=== PATIENT | male | born 1960 | race Caucasian/White ===

== ENCOUNTER → 2018-05-12 08:39 | Outpatient (CLI) | payer OTHER, SELFPAY ==
[2018-05-12 10:11] LABS: Add Manual Diff / Slide Review NO; Basophils Percent Auto 0.4 % (0-2); Eosinophils Percent Auto 3.5 % (2-4); Hematocrit 46.6 % (41-53); Hemoglobin 15.9 g/dL (13.5-17.5); Lymphocytes Percent Auto 27.5 % (25-40); Mean Corpuscular HGB Conc 34.1 % (30-36); Mean Corpuscular Hemoglobin 32.3 PG (26-34); Mean Corpuscular Volume 94.6 fL (80-100); Monocytes Percent Auto 10.7 % (3-14); Neutrophils Absolute Auto 2100 /uL (1500-7000); Neutrophils Percent Auto 57.9 % (50-75); Platelet Count 210 X10^3/uL (150-400); Red Blood Cell Count 4.93 X10^6/uL (4.5-5.9); Red Cell Distribution Width 13.2 % (11.6-14.8); White Blood Cell Count 3.7 X10^3/uL (4.5-11.0)
[2018-05-12 10:29] LABS: Alanine Aminotransferase 57 IU/L (21-72); Albumin 4.6 g/dL (3.5-5.0); Albumin Globulin Ratio 1.7 (1.0-2.8); Alkaline Phosphatase 80 U/L (38-126); Aspartate Aminotransferase 37 IU/L (17-59); BUN Creatinine Ratio 21.3 (6-22); Bilirubin Total 0.8 mg/dL (0.2-1.3); Blood Urea Nitrogen 17 mg/dL (9-20); Calcium 9.5 mg/dL (8.4-10.2); Carbon Dioxide 23 mmol/L (22-32); Chloride 105 mmol/L (98-107); Cholesterol 124 mg/dL (140-199); Estimated Glomerular Filt Rate > 60.0 mL/min (>60); Globulin 2.7 g/dL (1.7-4.1); Glucose 108 mg/dL (70-100); HDL Cholesterol 47 mg/dL (40-60); HEMOLYSIS < 15 (0-50); LDL Cholesterol Calculated 60 mg/dL (<100); Potassium 4.5 mmol/L (3.4-5.1); Sodium 142 mmol/L (137-145); Total Protein 7.3 g/dL (6.3-8.2); Triglycerides 84 mg/dL (35-150)
[2018-05-12 10:56] LABS: Prostate Specific Antigen 0.209 ng/mL (0.10-4.00)
[2018-05-12 12:28] LABS: Thyroid Stimulating Hormone 4.78 uIU/mL (0.47-4.68)
== END ==
PROVIDERS: PCP Family Medicine; Visit Provider Family Medicine
DX: E78.2 Mixed hyperlipidemia (principal); Z12.5 Encounter for screening for malignant neoplasm of prostate
CPT/HCPCS: 36415; 80053; 80061; 84153; 84443; 85025

== ENCOUNTER → 2018-09-05 13:55 | Outpatient (CLI) | payer OTHER, SELFPAY ==
[2018-09-05 15:13] LABS: Add Manual Diff / Slide Review NO; Basophils Absolute Auto 0 /uL (0-100); Basophils Percent Auto 0.5 % (0-2); Eosinophils Absolute Auto 100 /uL (0-450); Hematocrit 46.1 % (41-53); Hemoglobin 15.6 g/dL (13.5-17.5); Lymphocytes Absolute Auto 1200 /uL (1100-4500); Lymphocytes Percent Auto 24.6 % (25-40); Mean Corpuscular HGB Conc 33.9 % (30-36); Mean Corpuscular Hemoglobin 32.1 PG (26-34); Mean Corpuscular Volume 94.6 fL (80-100); Monocytes Absolute Auto 300 /uL (0-900); Monocytes Percent Auto 5.5 % (3-14); Neutrophils Absolute Auto 3200 /uL (1500-7000); Neutrophils Percent Auto 67.4 % (50-75); Platelet Count 217 X10^3/uL (150-400); Red Blood Cell Count 4.87 X10^6/uL (4.5-5.9); White Blood Cell Count 4.7 X10^3/uL (4.5-11.0)
[2018-09-05 15:54] LABS: Free T3, Triiodothyronine Free 4.05 pg/mL (2.77-5.27); Free T4, Direct Thyroxine 0.77 ng/dL (0.78-2.19)
[2018-09-05 16:08] LABS: Thyroid Stimulating Hormone 7.18 uIU/mL (0.47-4.68)
== END ==
PROVIDERS: Family Provider Family Medicine; PCP Family Medicine; Visit Provider Family Medicine
DX: D72.819 Decreased white blood cell count, unspecified (principal); E03.9 Hypothyroidism, unspecified
CPT/HCPCS: 36415; 84439; 84443; 84481; 85025

== ENCOUNTER → 2018-10-09 13:14 | Outpatient (CLI) | payer OTHER, SELFPAY ==
[2018-10-09 14:42] LABS: Thyroid Stimulating Hormone 3.01 uIU/mL (0.47-4.68)
== END ==
PROVIDERS: PCP Family Medicine; Visit Provider Family Medicine
DX: E03.9 Hypothyroidism, unspecified (principal)
CPT/HCPCS: 36415; 84443

== ENCOUNTER → 2019-03-12 07:42 | Outpatient (CLI) | payer OTHER, SELFPAY ==
[2019-03-12 08:16] LABS: Alanine Aminotransferase 35 IU/L (21-72); Albumin 4.6 g/dL (3.5-5.0); Albumin Globulin Ratio 1.6 (1.0-2.8); Alkaline Phosphatase 80 U/L (38-126); Aspartate Aminotransferase 31 IU/L (17-59); BUN Creatinine Ratio 18.9 (6-22); Bilirubin Total 1.1 mg/dL (0.2-1.3); Blood Urea Nitrogen 17 mg/dL (9-20); Calcium 9.9 mg/dL (8.4-10.2); Carbon Dioxide 27 mmol/L (22-32); Chloride 101 mmol/L (98-107); Cholesterol 185 mg/dL (140-199); Estimated Glomerular Filt Rate > 60.0 mL/min (>60); Globulin 2.8 g/dL (1.7-4.1); Glucose 111 mg/dL (70-100); HDL Cholesterol 50 mg/dL (40-60); HEMOLYSIS < 15 (0-50); LDL Cholesterol Calculated 100 mg/dL (<100); Potassium 4.8 mmol/L (3.4-5.1); Sodium 139 mmol/L (137-145); Total Protein 7.4 g/dL (6.3-8.2); Triglycerides 175 mg/dL (35-150); Uric Acid 6.9 mg/dL (3.5-8.5)
[2019-03-12 08:21] LABS: Add Manual Diff / Slide Review NO; Basophils Absolute Auto 0 /uL (0-100); Basophils Percent Auto 0.4 % (0-2); Eosinophils Absolute Auto 100 /uL (0-450); Eosinophils Percent Auto 2.2 % (2-4); Hematocrit 46.8 % (41-53); Hemoglobin 16.2 g/dL (13.5-17.5); Lymphocytes Absolute Auto 1300 /uL (1100-4500); Lymphocytes Percent Auto 31.4 % (25-40); Mean Corpuscular HGB Conc 34.7 % (30-36); Mean Corpuscular Hemoglobin 32.2 PG (26-34); Mean Corpuscular Volume 92.9 fL (80-100); Monocytes Absolute Auto 400 /uL (0-900); Monocytes Percent Auto 10.2 % (3-14); Neutrophils Absolute Auto 2300 /uL (1500-7000); Neutrophils Percent Auto 55.8 % (50-75); Platelet Count 210 X10^3/uL (150-400); Red Blood Cell Count 5.04 X10^6/uL (4.5-5.9); Red Cell Distribution Width 13.1 % (11.6-14.8); White Blood Cell Count 4.1 X10^3/uL (4.5-11.0)
[2019-03-12 08:45] LABS: Prostate Specific Antigen Scrn 0.198 ng/mL (0.1-4.0)
[2019-03-12 09:23] LABS: Thyroid Stimulating Hormone 4.71 uIU/mL (0.47-4.68)
== END ==
PROVIDERS: PCP Family Medicine; Visit Provider Family Medicine
DX: E07.9 Disorder of thyroid, unspecified (principal); E03.9 Hypothyroidism, unspecified; E78.2 Mixed hyperlipidemia; M10.9 Gout, unspecified; Z12.5 Encounter for screening for malignant neoplasm of prostate; Z13.0 Encounter for screening for diseases of the blood and blood-forming organs and certain disorders involving the immune mechanism; Z13.1 Encounter for screening for diabetes mellitus
CPT/HCPCS: 36415; 80053; 80061; 84443; 84550; 85025; G0103

== ENCOUNTER → 2019-05-10 07:42 | Outpatient (CLI) | payer OTHER, SELFPAY ==
[2019-05-10 09:51] LABS: Thyroid Stimulating Hormone 2.66 uIU/mL (0.47-4.68)
== END ==
PROVIDERS: PCP Family Medicine; Visit Provider Family Medicine
DX: E03.9 Hypothyroidism, unspecified (principal)
CPT/HCPCS: 36415; 84443

== ENCOUNTER → 2020-04-02 09:00 | Outpatient (CLI) | payer OTHER, SELFPAY ==
[2020-04-02 10:02] LABS: Add Manual Diff / Slide Review NO; Basophils Absolute Auto 0 /uL (0-100); Basophils Percent Auto 0.6 % (0-2); Eosinophils Absolute Auto 100 /uL (0-450); Eosinophils Percent Auto 2.5 % (2-4); Hematocrit 47.1 % (41-53); Lymphocytes Absolute Auto 1200 /uL (1100-4500); Lymphocytes Percent Auto 28.4 % (25-40); Mean Corpuscular Hemoglobin 31.7 PG (26-34); Mean Corpuscular Volume 93.1 fL (80-100); Monocytes Absolute Auto 400 /uL (0-900); Monocytes Percent Auto 8.5 % (3-14); Neutrophils Absolute Auto 2500 /uL (1500-7000); Platelet Count 223 X10^3/uL (150-400); Red Blood Cell Count 5.06 X10^6/uL (4.5-5.9); Red Cell Distribution Width 13.2 % (11.6-14.8); White Blood Cell Count 4.2 X10^3/uL (4.5-11.0)
[2020-04-02 10:27] LABS: Alanine Aminotransferase 42 IU/L (<50); Albumin 4.5 g/dL (3.5-5.0); Albumin Globulin Ratio 1.5 (1.0-2.8); Alkaline Phosphatase 91 U/L (38-126); Aspartate Aminotransferase 33 IU/L (17-59); BUN Creatinine Ratio 21.8 (6-22); Bilirubin Total 0.9 mg/dL (0.2-1.3); Blood Urea Nitrogen 19 mg/dL (9-20); Calcium 9.6 mg/dL (8.4-10.2); Carbon Dioxide 28 mmol/L (22-32); Chloride 104 mmol/L (98-107); Cholesterol 169 mg/dL (140-199); Estimated Glomerular Filt Rate > 60.0 mL/min (>60); Glucose 117 mg/dL (70-100); HDL Cholesterol 53 mg/dL (40-60); HEMOLYSIS < 15 (0-50); LDL Cholesterol Calculated 89 mg/dL (<100); Potassium 4.5 mmol/L (3.4-5.1); Sodium 137 mmol/L (137-145); Total Protein 7.5 g/dL (6.3-8.2); Triglycerides 136 mg/dL (35-150); Uric Acid 7.5 mg/dL (3.5-8.5)
[2020-04-02 10:55] LABS: Prostate Specific Antigen Scrn 0.215 ng/mL (0.1-4.0)
[2020-04-02 11:29] LABS: Thyroid Stimulating Hormone 2.78 uIU/mL (0.47-4.68)
== END ==
PROVIDERS: PCP Family Medicine; Referring Provider Family Medicine; Visit Provider Family Medicine
DX: E03.9 Hypothyroidism, unspecified (principal); E78.2 Mixed hyperlipidemia; M10.9 Gout, unspecified; M54.5 Low back pain; Z12.5 Encounter for screening for malignant neoplasm of prostate
CPT/HCPCS: 36415; 80053; 80061; 84443; 84550; 85025; G0103

== ENCOUNTER → 2020-04-16 09:13 | Outpatient (CLI) | payer OTHER, SELFPAY ==
--- NOTE | 2020-04-16 | DI.MRI.S_ITS ---
PROCEDURE: MR LUMBAR SPINE WO CON INDICATIONS: Low back pain TECHNIQUE: Noncontrast sagittal T1 spin echo and T2 fast echo, sagittal STIR, axial T1 and T2 fast spin echo through the lumbar spine. In cases with scoliosis, additional coronal T2 fast spin echo may be performed. COMPARISON: None. FINDINGS: Image quality: Excellent. Alignment and Curvature: There is trace L4-L5 anterolisthesis. There is trace L2-L3 and L3-L4 retrolisthesis.. Bone Marrow: Mild reactive endplate changes noted adjacent to the L1-L2, L2-L3, L3-L4 and L4-L5 discs. No acute vertebral body compression fractures. Spinal Cord: Conus medullaris terminates at the L1 level. Visualized cord demonstrates normal signal and size. Paraspinous Soft Tissues: No paravertebral masses. L1-L2: Loss of disc signal and height. Mild, diffuse disc bulge. Mild bilateral facet hypertrophy. Mild to moderate narrowing of the central canal. Mild bilateral neural foraminal narrowing. No neural compression. L2-L3: Loss of disc signal and mild loss of disc height. Mild, diffuse disc bulge. Fqwe-gs-khxmeqgt bilateral facet hypertrophy. Moderate narrowing of the central canal. Moderate right and jotn-ue-rqayitta left neural foraminal narrowing. No neural compression. L3-L4: Loss of disc signal and height. Mild, diffuse disc bulge. Moderate bilateral facet hypertrophy. Moderate narrowing of the central canal. Moderate bilateral neural foraminal narrowing. No neural compression. L4-L5: Loss of disc signal. Mild, diffuse disc bulge. Severe bilateral facet hypertrophy. Severe narrowing of the central canal with compression of the nerve roots of the cauda equina. Severe bilateral neural foraminal narrowing with compression of the exiting L4 nerve roots. L5-S1: Loss of disc signal. Minimal, diffuse disc bulge. Severe bilateral facet hypertrophy. Mild to moderate narrowing of the central canal. Mild right and moderate left neural foraminal narrowing. No neural compression. IMPRESSION: 1. Multilevel degenerative disc disease. 2. Multilevel facet arthropathy. 3. Severe L4-L5 central canal narrowing with compression of the nerve roots of the cauda equina. 4. Severe bilateral L4-L5 neural foraminal narrowing with compression of the exiting bilateral L4 nerve roots. Dictated by: Kandy Quezada MD, PhD on 04/16/2020 at 11:05 Approved by: Kandy Quezada MD, PhD on 04/16/2020 at 11:20
== END ==
PROVIDERS: PCP Family Medicine; Referring Provider Orthopaedic Surgery; Visit Provider Orthopaedic Surgery
DX: M54.5 Low back pain (principal); M51.36 Other intervertebral disc degeneration, lumbar region; M47.816 Spondylosis without myelopathy or radiculopathy, lumbar region; M47.817 Spondylosis without myelopathy or radiculopathy, lumbosacral region; M48.061 Spinal stenosis, lumbar region without neurogenic claudication
CPT/HCPCS: 72148

== ENCOUNTER → 2021-05-21 14:33 | Outpatient (CLI) | payer OTHER, SELFPAY ==
--- NOTE | 2021-05-21 14:37 | DI.RAD.S_ITS ---
PROCEDURE: XR HIP W PEL IF DONE RT 2V INDICATIONS: chronic low back pain and right hip pain TECHNIQUE: AP pelvis with lateral view(s) of the bilateral hip(s). COMPARISON: None. FINDINGS: Bones: No fractures or dislocations. Pelvic ring appears intact. No suspicious bony lesions. Mild bilateral hip joint periarticular osteophyte formation. Soft tissues: The visualized bowel gas pattern is normal. No suspicious soft tissue calcifications. IMPRESSION: Bilateral hip osteoarthritis. No acute fracture. No osseous lesion. If symptoms and/or clinical suspicion for pathology persist, further assessment with repeat, or advanced imaging (e.g., CT, MRI, or bone scan) may be helpful for further assessment. Dictated by: Candelario De La Rosa M.D. on 05/21/2021 at 14:51 Approved by: Candelario De La Rosa M.D. on 05/21/2021 at 14:52
--- NOTE | 2021-05-21 14:37 | DI.RAD.S_ITS ---
PROCEDURE: XR LUMBAR SPINE 2-3V INDICATIONS: chronic low back pain and right hip pain TECHNIQUE: 3 views of the lumbar spine were acquired. COMPARISON: None. FINDINGS: Bones: 5 ojg-vtf-[id number] vertebrae are present. Trace levo curvature centered at the L3 level. Trace multilevel retrolisthesis. Multilevel disc degeneration, most notably and moderate at the L3-L4 level. Moderate L4-L5 and L5-S1 facet joint arthropathy. No vertebral body compression fractures. No suspicious bony lesions. Soft tissues: Overlying bowel gas pattern is normal. No suspicious soft tissue calcifications. Vascular calcifications indicate atherosclerosis. IMPRESSION: Multilevel spondylosis. Dictated by: Adrien Riley [facility] Interpreted: Keyla Lagos MD on 05/21/2021 at 14:55 Transcribed by: DHRUV on 05/21/2021 at 14:56 Approved by: Keyla Lagos M.D. on 05/21/2021 at 16:46
== END ==
PROVIDERS: PCP Family Medicine; Referring Provider Family Medicine; Visit Provider Family Medicine
DX: M47.817 Spondylosis without myelopathy or radiculopathy, lumbosacral region (principal); M16.0 Bilateral primary osteoarthritis of hip; M47.816 Spondylosis without myelopathy or radiculopathy, lumbar region
CPT/HCPCS: 72100; 73502

== ENCOUNTER → 2021-06-05 08:18 | Outpatient (CLI) | payer OTHER, SELFPAY ==
[2021-06-05 09:35] LABS: Add Manual Diff / Slide Review NO; Basophils Absolute Auto 0 /uL (0-100); Basophils Percent Auto 0.5 % (0-2); Eosinophils Absolute Auto 100 /uL (0-450); Eosinophils Percent Auto 3.6 % (2-4); Hematocrit 45.8 % (41-53); Hemoglobin 15.6 g/dL (13.5-17.5); Lymphocytes Absolute Auto 1300 /uL (1100-4500); Lymphocytes Percent Auto 34.9 % (25-40); Mean Corpuscular HGB Conc 34.1 % (30-36); Mean Corpuscular Hemoglobin 32.1 PG (26-34); Mean Corpuscular Volume 94.2 fL (80-100); Monocytes Absolute Auto 400 /uL (0-900); Neutrophils Absolute Auto 2000 /uL (1500-7000); Platelet Count 229 X10^3/uL (150-400); Red Blood Cell Count 4.86 X10^6/uL (4.5-5.9); Red Cell Distribution Width 13.4 % (11.6-14.8); White Blood Cell Count 3.8 X10^3/uL (4.5-11.0)
[2021-06-05 09:49] LABS: Alanine Aminotransferase 53 IU/L (<50); Albumin 4.5 g/dL (3.5-5.0); Albumin Globulin Ratio 1.7 (1.0-2.8); Alkaline Phosphatase 80 U/L (38-126); Aspartate Aminotransferase 38 IU/L (17-59); BUN Creatinine Ratio 19.5 (6-22); Bilirubin Total 0.8 mg/dL (0.2-1.3); Blood Urea Nitrogen 15 mg/dL (9-20); Calcium 9.9 mg/dL (8.4-10.2); Carbon Dioxide 28 mmol/L (22-32); Chloride 104 mmol/L (98-107); Cholesterol 124 mg/dL (140-199); Estimated Glomerular Filt Rate > 60.0 mL/min (>60); Globulin 2.6 g/dL (1.7-4.1); Glucose 109 mg/dL (80-110); HDL Cholesterol 49 mg/dL (40-60); HEMOLYSIS < 15 (0-50); LDL Cholesterol Calculated 55 mg/dL (<100); Potassium 4.7 mmol/L (3.4-5.1); Sodium 138 mmol/L (137-145); Total Protein 7.1 g/dL (6.3-8.2); Triglycerides 101 mg/dL (35-150); Uric Acid 5.8 mg/dL (3.5-8.5)
[2021-06-05 10:16] LABS: TSH w/ Reflex to FT4 2.39 uIU/mL (0.47-4.68)
== END ==
PROVIDERS: Family Provider Family Medicine; PCP Family Medicine; Referring Provider Family Medicine; Visit Provider Family Medicine
DX: E03.9 Hypothyroidism, unspecified (principal); E78.2 Mixed hyperlipidemia; M10.9 Gout, unspecified
CPT/HCPCS: 36415; 80053; 80061; 84443; 84550; 85025

== ENCOUNTER 2021-06-22 10:30 | Outpatient (RCR) | payer OTHER, SELFPAY ==
--- NOTE | 2021-05-29 15:31 | PT.OIE ---
Current Diagnoses Unilateral primary osteoarthritis, right hip (05/29/21) Spondylosis without myelopathy or radiculopathy, lumbosacral region (05/29/21) Past Medical History (Last Updated 05/21/21 @ 13:55 by Romie Garay MD) Gout (~1995) Head and neck cancer (~2010) History of left knee surgery (~1975) History of right knee surgery (~2013) Lumbar and sacral osteoarthritis Osteoarthritis of right hip Stool incontinence Past Surgical History (Last Updated 06/01/18 @ 20:25 by Silvana Orosco) Anesthesia History of left knee surgery (~1975) History of right knee surgery (~2013) Visit Care Team Role Provider Type Romie Garay MD Attending Provider Physician Family Provider Primary Care Provider Referring Provider Specialty: Family Practice Address: [address] [place] [address], [facility] Email: [email or web address] Physical Therapy Initial Evaluation PT-OP-A Visit Information Start: 05/28/21 10:13 Freq: Status: Active Protocol: Document 05/29/21 10:30 AMB (Rec: 05/29/21 15:06 AMB [id number]) Out-Patient Physical Therapy Visit Information Visit Information Visit Type Initial Evaluation Visit Start Time 10:30 Visit Stop Time 11:15 Total Visit Minutes 45 Visit Number 1 Precautions Precautions central canal stenosis with cauda equina impingement, anterolisthesis and retrolisthesis-- see MRI PT-OP-B Current Condition Start: 05/28/21 10:13 Freq: Status: Active Protocol: Document 05/29/21 10:30 AMB (Rec: 05/29/21 10:50 AMB [id number]) Current Condition History of Current Condition Onset Date 2 years ago, worsening Current Complaints LBP/ Right hip pain/weakness History of Current Condition Humphrey notes back pain/hip pain. 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 Notes pain started with sitting at work, they got a new chair and it was quite uncomfortable. Has to sit in the chair for about 14 hours a day when working. Wasn't able to get off the boat when going to port due to Covid. Takes a lot of ibuprofen. R leg is weaker than it used to be, also notes L leg numbness with walking. Walking for exercise . Bowel changes in last few months: anal leakage with coughing unless really tightens sphincter purposefully, even then can leak. Denies numbness in saddle area. Prior Treatments and Tests MRI dated 04/16/20 1. Multilevel degenerative disc disease. 2. Multilevel facet arthropathy. 3. Severe L4-L5 central canal narrowing with compression of the nerve roots of the cauda equina. 4. Severe bilateral L4-L5 neural foraminal narrowing with compression of the exiting bilateral L4 nerve roots. Future Testing and Treatments Planned Trying to get into neurosurgery appt, had MRI a couple of days ago up in [place], but hasn't received report for that yet. Treatment Goals Patient/Caregiver Goals REduce pain with walking, sleeping, sitting Prior Functional Status Baseline Function- ADL's Independent Baseline Function- Mobility Independent Current Functional Impairments (Reported) Functional Limitations- ADL's Sleeping, walking, sitting Personal Factors Other Personal Factors That May Effect 6'4 300# Therapy/Recovery PT-OP-C Subjective Start: 05/28/21 10:13 Freq: Status: Active Protocol: Document 05/29/21 10:30 AMB (Rec: 05/29/21 15:06 AMB [id number]) Patient Questionnaires Oswestry Low Back Index Oswestry Score 24 Oswestry Impairment 20 to 39% Impaired (Score 20- 39) PT-OP-G Mobility & Gait Start: 05/28/21 10:13 Freq: Status: Active Protocol: Document 05/29/21 10:30 AMB (Rec: 05/29/21 15:14 AMB [id number]) OP Gait Assessment Comments Gait Comments Antalgic gait with reduced trunk rotation and mild Trendelenburg on R, no AD PT-OP-J Posture/Palpation/Skin Start: 05/28/21 10:13 Freq: Status: Active Protocol: Document 05/29/21 10:30 AMB (Rec: 05/29/21 15:14 AMB [id number]) Posture Evaluation Comments Posture Comments Flat spine, pain over L4L5 and then radiates into ischial tub on R, no pain going down further into leg, but numbness goes down the left posterior thigh to the back of the knee when present. PT-OP-K Range of Motion Start: 05/28/21 10:13 Freq: Status: Active Protocol: Document 05/29/21 10:30 AMB (Rec: 05/29/21 15:14 AMB [id number]) Lumbar Spine Range of Motion Lumbar Spine Active Degrees Testing Position Standing Flexion 50 Extension 30 Comments good painfree motion, does not reproduce pain or reduce it either Hip Goniometric Range of Motion Hip Right Passive Testing Position Supine Flexion w/Knee Flexed 110 Internal Rotation 0 External Rotation 20 PT-OP-M Strength Start: 05/28/21 10:13 Freq: Status: Active Protocol: Document 05/29/21 10:30 AMB (Rec: 05/29/21 15:14 AMB [id number]) Hip Strength Hip Manual Muscle Testing Right Flexion (L2) 4- Good- Abduction 3+ Fair+ External Rotation 4- Good- Left Flexion (L2) 4+ Good+ Extension (S1) 4+ Good+ Abduction 4+ Good+ Knee Strength Knee Manual Muscle Testing Right Flexion (S2) 5 Normal Extension (L3) 5 Normal Left Flexion (S2) 5 Normal Extension (L3) 5 Normal Ankle/Foot Strength Ankle and Foot Manual Muscle Testing Right Dorsiflexion (L4) 4- Good- Plantarflexion (S1) 4+ Good+ Left Dorsiflexion (L4) 4+ Good+ Plantarflexion (S1) 4+ Good+ PT-OP-T Assessment and Plan Start: 05/28/21 10:13 Freq: Status: Active Protocol: Document 05/29/21 10:30 AMB (Rec: 05/29/21 15:24 AMB [id number]) Physical Therapy Assessment Rehab Potential Rehabilitation Potential Good Evaluation Complexity Number of Personal Factors/Comorbidities 1-2 Number of Body Systems Impaired 4 or More Clinical Presentation at Evaluation Evolving Impairments Impairments Activity Tolerance,Functional Activities,Gait,Pain,Posture, ROM,Strength Goals Two Impairment Pain Short Term Goal (STG) Humphrey will walk for 1 mile without numbness or pain of greater than 3/10. STG Duration 4 weeks Pulper Goal (LTG) Humphrey will report pain at worst in the past week as 5/10 or less. LTG Duration 8 weeks One Impairment Strength Short Term Goal (STG) Humphrey will be independent with a HEP for core and hip strengthening. STG Duration 4 weeks Longterm Goal (LTG) Humphrey will improve his hip strength to 4/5 in all planes. LTG Duration 6 weeks Assessment Summary Assessment Humphrey attends physical therapy with worsening low back pain that radiates into the hips. He also does have restricted ROM in the right hip. Prior imaging reveals central canal stenosis with compression of the nerve roots of the cauda equina and R hip osteoarthritis. He is going to be evaluated by neurosurgery as he is starting to report fecal incontinence. 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 He does have right leg (hip and ankle dorsiflexion) weakness but has maintained his lumbar ROM well. He will benefit from physical therapy to instruct him in appropriate body mechanics, core stabilization, and work with pain management strategies. Currently his pain at rest is 1/10, but can increase to 8/10 quickly, and he would benefit from a reduction in pain and improved strength while considering further treatment options. Physical Therapy Plan Frequency and Duration Frequency of Treatment 2x/Week Duration of Treatment 6 weeks Plan of Care Start Date 05/29/21 Plan of Care End Date 07/10/21 Therapeutic Interventions Therapeutic Interventions Aquatic Therapy,Gait Training, Home Exercise Program,Manual Therapy,Neuromuscular Re- education,Self-Care/Home Management,Therapeutic Activities,Therapeutic Exercises Modalities Electric Stimulation,Hot Packs Next Visit Focus/Plan Next Note Type Treatment Note Next Visit Plan Started discussion of TA facilitation and body mechanics at [facility], continue and progress pain relief options.
--- NOTE | 2021-05-29 15:32 | PT.OPPOC ---
Physical, Occupational & Speech Therapy At [facility] Current Diagnoses Unilateral primary osteoarthritis, right hip (05/29/21) Spondylosis without myelopathy or radiculopathy, lumbosacral region (05/29/21) Visit Care Team Role Provider Type Romie Garay MD Attending Provider Physician Family Provider Primary Care Provider Referring Provider Specialty: Family Practice Address: [address] [place] [address], [employer] Email: [email or web address] Plan Of Care PT-OP-T Assessment and Plan Start: 05/28/21 10:13 Freq: Status: Active Protocol: Document 05/29/21 10:30 AMB (Rec: 05/29/21 15:24 AMB [id number]) Physical Therapy Assessment Rehab Potential Rehabilitation Potential Good Evaluation Complexity Number of Personal Factors/Comorbidities 1-2 Number of Body Systems Impaired 4 or More Clinical Presentation at Evaluation Evolving Impairments Impairments Activity Tolerance,Functional Activities,Gait,Pain,Posture, ROM,Strength Goals Two Impairment Pain Short Term Goal (STG) Humphrey will walk for 1 mile without numbness or pain of greater than 3/10. STG Duration 4 weeks Optical Glass Inspector Goal (LTG) Humphrey will report pain at worst in the past week as 5/10 or less. LTG Duration 8 weeks One Impairment Strength Short Term Goal (STG) Humphrey will be independent with a HEP for core and hip strengthening. STG Duration 4 weeks Skilled Nursing Goal (LTG) Humphrey will improve his hip strength to 4/5 in all planes. LTG Duration 6 weeks Assessment Summary Assessment Humphrey attends physical therapy with worsening low back pain that radiates into the hips. He also does have restricted ROM in the right hip. Prior imaging reveals central canal stenosis with compression of the nerve roots of the cauda equina and R hip osteoarthritis. He is going to be evaluated by neurosurgery as he is starting to report fecal incontinence. 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 He does have right leg (hip and ankle dorsiflexion) weakness but has maintained his lumbar ROM well. He will benefit from physical therapy to instruct him in appropriate body mechanics, core stabilization, and work with pain management strategies. Currently his pain at rest is 1/10, but can increase to 8/10 quickly, and he would benefit from a reduction in pain and improved strength while considering further treatment options. Physical Therapy Plan Frequency and Duration Frequency of Treatment 2x/Week Duration of Treatment 6 weeks Plan of Care Start Date 05/29/21 Plan of Care End Date 07/10/21 Therapeutic Interventions Therapeutic Interventions Aquatic Therapy,Gait Training, Home Exercise Program,Manual Therapy,Neuromuscular Re- education,Self-Care/Home Management,Therapeutic Activities,Therapeutic Exercises Modalities Electric Stimulation,Hot Packs Next Visit Focus/Plan Next Note Type Treatment Note Next Visit Plan Started discussion of TA facilitation and body mechanics at eval, continue and progress pain relief options. Plan of Care Dates Plan of Care Start Date 05/29/21 Plan of Care End Date 07/10/21 Electronically Signed by: Sandi Haines, PT 05/29/21 [id number] Please Sign and Return: I have reviewed this Plan of Care and certify that the skilled therapy services above are required to meet the patient?s needs. Physician Signature Date Printed Name and Credentials Clinical Instructor Signature Printed Name and Credentials
--- NOTE | 2021-06-01 09:46 | PT.OTN ---
Current Diagnoses Unilateral primary osteoarthritis, right hip (06/01/21) Spondylosis without myelopathy or radiculopathy, lumbosacral region (06/01/21) Physical Therapy Treatment Note PT-OP-A Visit Information Start: 05/28/21 10:13 Freq: Status: Active Protocol: Document 06/01/21 09:06 SP (Rec: 06/01/21 09:49 SP [id number]) Out-Patient Physical Therapy Visit Information Visit Information Visit Type Treatment Note Visit Start Time 09:06 Visit Stop Time 09:46 Total Visit Minutes 40 Visit Number 2 Number of HIM CODER Visits 2 Precautions Precautions central canal stenosis with cauda equina impingement, anterolisthesis and retrolisthesis-- see MRI PT-OP-B Current Condition Start: 05/28/21 10:13 Freq: Status: Active Protocol: Document 05/29/21 10:30 AMB (Rec: 05/29/21 10:50 AMB [id number]) Current Condition History of Current Condition Onset Date 2 years ago, worsening Current Complaints LBP/ Right hip pain/weakness History of Current Condition Humphrey notes back pain/hip pain. 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 Notes pain started with sitting at work, they got a new chair and it was quite uncomfortable. Has to sit in the chair for about 14 hours a day when working. Wasn't able to get off the boat when going to port due to Covid. Takes a lot of ibuprofen. R leg is weaker than it used to be, also notes L leg numbness with walking. Walking for exercise . Bowel changes in last few months: anal leakage with coughing unless really tightens sphincter purposefully, even then can leak. Denies numbness in saddle area. Prior Treatments and Tests MRI dated 04/16/20 1. Multilevel degenerative disc disease. 2. Multilevel facet arthropathy. 3. Severe L4-L5 central canal narrowing with compression of the nerve roots of the cauda equina. 4. Severe bilateral L4-L5 neural foraminal narrowing with compression of the exiting bilateral L4 nerve roots. Future Testing and Treatments Planned Trying to get into neurosurgery appt, had MRI a couple of days ago up in [place], but hasn't received report for that yet. Treatment Goals Patient/Caregiver Goals REduce pain with walking, sleeping, sitting Prior Functional Status Baseline Function- ADL's Independent Baseline Function- Mobility Independent Current Functional Impairments (Reported) Functional Limitations- ADL's Sleeping, walking, sitting Personal Factors Other Personal Factors That May Effect 6'4 300# Therapy/Recovery PT-OP-C Subjective Start: 05/28/21 10:13 Freq: Status: Active Protocol: Document 06/01/21 09:06 SP (Rec: 06/01/21 09:49 SP [id number]) OP-PT Subjective Patient Comments Patient Comments Pt reports leaving Jun 2 back out [place] sea. [place] fine after eval. PT-OP-G Mobility & Gait Start: 05/28/21 10:13 Freq: Status: Active Protocol: Document 05/29/21 10:30 AMB (Rec: 05/29/21 15:14 AMB [id number]) OP Gait Assessment Comments Gait Comments Antalgic gait with reduced trunk rotation and mild Trendelenburg on R, no AD PT-OP-J Posture/Palpation/Skin Start: 05/28/21 10:13 Freq: Status: Active Protocol: Document 05/29/21 10:30 AMB (Rec: 05/29/21 15:14 AMB [id number]) Posture Evaluation Comments Posture Comments Flat spine, pain over L4L5 and then radiates into ischial tub on R, no pain going down further into leg, but numbness goes down the left posterior thigh to the back of the knee when present. PT-OP-K Range of Motion Start: 05/28/21 10:13 Freq: Status: Active Protocol: Document 05/29/21 10:30 AMB (Rec: 05/29/21 15:14 AMB [id number]) Lumbar Spine Range of Motion Lumbar Spine Active Degrees Testing Position Standing Flexion 50 Extension 30 Comments good painfree motion, does not reproduce pain or reduce it either Hip Goniometric Range of Motion Hip Right Passive Testing Position Supine Flexion w/Knee Flexed 110 Internal Rotation 0 External Rotation 20 PT-OP-M Strength Start: 05/28/21 10:13 Freq: Status: Active Protocol: Document 05/29/21 10:30 AMB (Rec: 05/29/21 15:14 AMB [id number]) Hip Strength Hip Manual Muscle Testing Right Flexion (L2) 4- Good- Abduction 3+ Fair+ External Rotation 4- Good- Left Flexion (L2) 4+ Good+ Extension (S1) 4+ Good+ Abduction 4+ Good+ Knee Strength Knee Manual Muscle Testing Right Flexion (S2) 5 Normal Extension (L3) 5 Normal Left Flexion (S2) 5 Normal Extension (L3) 5 Normal Ankle/Foot Strength Ankle and Foot Manual Muscle Testing Right Dorsiflexion (L4) 4- Good- Plantarflexion (S1) 4+ Good+ Left Dorsiflexion (L4) 4+ Good+ Plantarflexion (S1) 4+ Good+ PT-OP-Q Treatments Start: 05/28/21 10:13 Freq: Status: Active Protocol: Document 06/01/21 09:06 SP (Rec: 06/01/21 09:49 SP [id number]) Therapeutic Exercises Supine Exercises Sciatic nerve glide/ HS with AP Supine Exercise Name added to HEP Side bilateral Equipment Used towel around thigh Reps/Minutes 2x5 Comments good feedback, tighter on L TA march Supine Exercise Name alternating BLE- added to HEP Side bilateral Reps/Minutes x8 Comments cued TA, slow elevate/lower 90 /90 LTR Supine Exercise Name added to HEP Side bilateral Reps/Minutes 5 breath x5 each side Comments good feedback stretch, painfree range TA engagement Supine Exercise Name hooklying- added to HEP Reps/Minutes 10 sec hold x5 (HEP 10s) Comments cued engage with allowance breath, little challenge Standing Exercises Self STMs Standing Exercise Name paraspinals, glut/ piriformis: added to HEP Equipment Used racquetball on wall Reps/Minutes 3 min total Comments little more sensitive on L but feels ok to do- 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 STG Duration 4 weeks Fpc Goal (LTG) Humphrey will report pain at worst in the past week as 5/10 or less. LTG Duration 8 weeks One Impairment Strength Short Term Goal (STG) Humphrey will be independent with a HEP for core and hip strengthening. STG Duration 4 weeks Fpc Goal (LTG) Humphrey will improve his hip strength to 4/5 in all planes. LTG Duration 6 weeks Assessment Summary Assessment Pt responded well to HEP initiated HEP core strengthening, flexibililty in supine and self STMs for decrease muscle tightness self application. Extra time spent for core/ TA facilitation and neutral spine with cues for breath, alignment and proper form with improved self corrrections. Pt reported my abdominals are weak and find needing to hold my breath some when doing the leg exercises . Pt improved with Coelho contraction with breath ability. Physical Therapy Plan Frequency and Duration Frequency of Treatment 2x/Week Duration of Treatment 6 weeks Plan of Care Start Date 05/29/21 Plan of Care End Date 07/10/21 Therapeutic Interventions Therapeutic Interventions Aquatic Therapy,Gait Training, Home Exercise Program,Manual Therapy,Neuromuscular Re- education,Self-Care/Home Management,Therapeutic Activities,Therapeutic Exercises Modalities Electric Stimulation,Hot Packs Next Visit Focus/Plan Next Note Type Treatment Note Next Visit Plan Recheck HEP initiated last tx supine. Next tx: check body mechanics sit/ stand/ sleep. POC: Started discussion of TA facilitation and body mechanics at eval, continue and progress pain relief options.
--- NOTE | 2021-06-04 12:28 | PT.OTN ---
Current Diagnoses Unilateral primary osteoarthritis, right hip (06/04/21) Spondylosis without myelopathy or radiculopathy, lumbosacral region (06/04/21) Physical Therapy Treatment Note PT-OP-A Visit Information Start: 05/28/21 10:13 Freq: Status: Active Protocol: Document 06/04/21 10:30 AMB (Rec: 06/04/21 11:01 AMB [id number]) Out-Patient Physical Therapy Visit Information Visit Information Visit Type Treatment Note Visit Start Time 10:30 Visit Stop Time 11:15 Total Visit Minutes 45 Visit Number 2 PT-OP-B Current Condition Start: 05/28/21 10:13 Freq: Status: Active Protocol: Document 05/29/21 10:30 AMB (Rec: 05/29/21 10:50 AMB [id number]) Current Condition History of Current Condition Onset Date 2 years ago, worsening Current Complaints LBP/ Right hip pain/weakness History of Current Condition Humphrey notes back pain/hip pain. 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 Notes pain started with sitting at work, they got a new chair and it was quite uncomfortable. Has to sit in the chair for about 14 hours a day when working. Wasn't able to get off the boat when going to port due to Covid. Takes a lot of ibuprofen. R leg is weaker than it used to be, also notes L leg numbness with walking. Walking for exercise . Bowel changes in last few months: anal leakage with coughing unless really tightens sphincter purposefully, even then can leak. Denies numbness in saddle area. Prior Treatments and Tests MRI dated 04/16/20 1. Multilevel degenerative disc disease. 2. Multilevel facet arthropathy. 3. Severe L4-L5 central canal narrowing with compression of the nerve roots of the cauda equina. 4. Severe bilateral L4-L5 neural foraminal narrowing with compression of the exiting bilateral L4 nerve roots. Future Testing and Treatments Planned Trying to get into neurosurgery appt, had MRI a couple of days ago up in [place], but hasn't received report for that yet. Treatment Goals Patient/Caregiver Goals REduce pain with walking, sleeping, sitting Prior Functional Status Baseline Function- ADL's Independent Baseline Function- Mobility Independent Current Functional Impairments (Reported) Functional Limitations- ADL's Sleeping, walking, sitting Personal Factors Other Personal Factors That May Effect 6'4 300# Therapy/Recovery PT-OP-C Subjective Start: 05/28/21 10:13 Freq: Status: Active Protocol: Document 06/04/21 10:30 AMB (Rec: 06/04/21 11:01 AMB [id number]) OP-PT Subjective Patient Comments Patient Comments Seeing ortho surgeon in [place] next week. Did go on a walk this morning, had a bit of numbness but it didn't last much. PT-OP-G Mobility & Gait Start: 05/28/21 10:13 Freq: Status: Active Protocol: Document 05/29/21 10:30 AMB (Rec: 05/29/21 15:14 AMB [id number]) OP Gait Assessment Comments Gait Comments Antalgic gait with reduced trunk rotation and mild Trendelenburg on R, no AD PT-OP-J Posture/Palpation/Skin Start: 05/28/21 10:13 Freq: Status: Active Protocol: Document 05/29/21 10:30 AMB (Rec: 05/29/21 15:14 AMB [id number]) Posture Evaluation Comments Posture Comments Flat spine, pain over L4L5 and then radiates into ischial tub on R, no pain going down further into leg, but numbness goes down the left posterior thigh to the back of the knee when present. PT-OP-K Range of Motion Start: 05/28/21 10:13 Freq: Status: Active Protocol: Document 05/29/21 10:30 AMB (Rec: 05/29/21 15:14 AMB [id number]) Lumbar Spine Range of Motion Lumbar Spine Active Degrees Testing Position Standing Flexion 50 Extension 30 Comments good painfree motion, does not reproduce pain or reduce it either Hip Goniometric Range of Motion Hip Right Passive Testing Position Supine Flexion w/Knee Flexed 110 Internal Rotation 0 External Rotation 20 PT-OP-M Strength Start: 05/28/21 10:13 Freq: Status: Active Protocol: Document 05/29/21 10:30 AMB (Rec: 05/29/21 15:14 AMB [id number]) Hip Strength Hip Manual Muscle Testing Right Flexion (L2) 4- Good- Abduction 3+ Fair+ External Rotation 4- Good- Left Flexion (L2) 4+ Good+ Extension (S1) 4+ Good+ Abduction 4+ Good+ Knee Strength Knee Manual Muscle Testing Right Flexion (S2) 5 Normal Extension (L3) 5 Normal Left Flexion (S2) 5 Normal Extension (L3) 5 Normal Ankle/Foot Strength Ankle and Foot Manual Muscle Testing Right Dorsiflexion (L4) 4- Good- Plantarflexion (S1) 4+ Good+ Left Dorsiflexion (L4) 4+ Good+ Plantarflexion (S1) 4+ Good+ PT-OP-Q Treatments Start: 05/28/21 10:13 Freq: Status: Active Protocol: Document 06/04/21 10:30 AMB (Rec: 06/04/21 12:28 AMB [id number]) Therapeutic Exercises Supine Exercises modified piriformis stretch Supine Exercise Name knee to opposite shoulder Reps/Minutes 30x2 TA july Supine Exercise Name alternating BLE- added to HEP Side bilateral Reps/Minutes x8 Comments cued TA, slow elevate/lower 90 /90 LTR Supine Exercise Name added to HEP Side bilateral Reps/Minutes 5 breath x5 each side Comments good feedback stretch, painfree range Sidelying Exercises 1 Sidelying Exercise Name hip abd Reps/Minutes 2x10 Comments cues for hip stacked, not rotating Sitting Exercises 1 Sitting Exercise Name sciatic n glide Side bilateral Reps/Minutes 2 Comments felt fatigue in quad on R Standing Exercises 1 Standing Exercise Name heel raises Comments single leg- very challenging on the right Other Exercises bird dog Other Exercise Name started with TA in quad, then LE ext, then UE flex Reps/Minutes 2x10 Comments cues for neutral spine PT-OP-T Assessment and Plan Start: 05/28/21 10:13 Freq: Status: Active Protocol: Document 06/04/21 10:30 AMB (Rec: 06/04/21 12:28 AMB [id number]) Physical Therapy Assessment Goals Two Impairment Pain Short Term Goal (STG) Humphrey will walk for 1 mile without numbness or pain of greater than 3/10. STG Duration 4 weeks Group Home Goal (LTG) Humphrey will report pain at worst in the past week as 5/10 or less. LTG Duration 8 weeks One Impairment Strength Short Term Goal (STG) Humphrey will be independent with a HEP for core and hip strengthening. STG Duration 4 weeks Group Home Goal (LTG) Humphrey will improve his hip strength to 4/5 in all planes. LTG Duration 6 weeks Assessment Summary Assessment Humphrey has weakness in his calf and hip, that he was really unaware of before coming to PT. Was able to perform everything without an increase in pain. Concerned about extended sitting that he needs to do when he goes back on the boat. Physical Therapy Plan Frequency and Duration Frequency of Treatment 2x/Week Duration of Treatment 6 weeks Plan of Care Start Date 05/29/21 Plan of Care End Date 07/10/21 Next Visit Focus/Plan Next Note Type Treatment Note Next Visit Plan Next tx: check body mechanics sit/ stand/ sleep. Review new exercises: bird dog, sciatic n glid, modified piriformis stretch
--- NOTE | 2021-06-08 11:24 | PT.OTN ---
Current Diagnoses Unilateral primary osteoarthritis, right hip (06/08/21) Spondylosis without myelopathy or radiculopathy, lumbosacral region (06/08/21) Physical Therapy Treatment Note PT-OP-A Visit Information Start: 05/28/21 10:13 Freq: Status: Active Protocol: Document 06/08/21 10:32 AMB (Rec: 06/08/21 11:20 AMB [id number]) Out-Patient Physical Therapy Visit Information Visit Information Visit Type Treatment Note Visit Start Time 10:30 Visit Stop Time 11:15 Total Visit Minutes 45 Visit Number 3 PT-OP-B Current Condition Start: 05/28/21 10:13 Freq: Status: Active Protocol: Document 05/29/21 10:30 AMB (Rec: 05/29/21 10:50 AMB [id number]) Current Condition History of Current Condition Onset Date 2 years ago, worsening Current Complaints LBP/ Right hip pain/weakness History of Current Condition Humphrey notes back pain/hip pain. 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 Notes pain started with sitting at work, they got a new chair and it was quite uncomfortable. Has to sit in the chair for about 14 hours a day when working. Wasn't able to get off the boat when going to port due to Covid. Takes a lot of ibuprofen. R leg is weaker than it used to be, also notes L leg numbness with walking. Walking for exercise . Bowel changes in last few months: anal leakage with coughing unless really tightens sphincter purposefully, even then can leak. Denies numbness in saddle area. Prior Treatments and Tests MRI dated 04/16/20 1. Multilevel degenerative disc disease. 2. Multilevel facet arthropathy. 3. Severe L4-L5 central canal narrowing with compression of the nerve roots of the cauda equina. 4. Severe bilateral L4-L5 neural foraminal narrowing with compression of the exiting bilateral L4 nerve roots. Future Testing and Treatments Planned Trying to get into neurosurgery appt, had MRI a couple of days ago up in [place], but hasn't received report for that yet. Treatment Goals Patient/Caregiver Goals REduce pain with walking, sleeping, sitting Prior Functional Status Baseline Function- ADL's Independent Baseline Function- Mobility Independent Current Functional Impairments (Reported) Functional Limitations- ADL's Sleeping, walking, sitting Personal Factors Other Personal Factors That May Effect 6'4 300# Therapy/Recovery PT-OP-C Subjective Start: 05/28/21 10:13 Freq: Status: Active Protocol: Document 06/08/21 10:32 AMB (Rec: 06/08/21 11:20 AMB [id number]) OP-PT Subjective Patient Comments Patient Comments Pt has been doing exercises and making them a little harder, heel raises are hard. PT-OP-G Mobility & Gait Start: 05/28/21 10:13 Freq: Status: Active Protocol: Document 05/29/21 10:30 AMB (Rec: 05/29/21 15:14 AMB [id number]) OP Gait Assessment Comments Gait Comments Antalgic gait with reduced trunk rotation and mild Trendelenburg on R, no AD PT-OP-J Posture/Palpation/Skin Start: 05/28/21 10:13 Freq: Status: Active Protocol: Document 05/29/21 10:30 AMB (Rec: 05/29/21 15:14 AMB [id number]) Posture Evaluation Comments Posture Comments Flat spine, pain over L4L5 and then radiates into ischial tub on R, no pain going down further into leg, but numbness goes down the left posterior thigh to the back of the knee when present. PT-OP-K Range of Motion Start: 05/28/21 10:13 Freq: Status: Active Protocol: Document 05/29/21 10:30 AMB (Rec: 05/29/21 15:14 AMB [id number]) Lumbar Spine Range of Motion Lumbar Spine Active Degrees Testing Position Standing Flexion 50 Extension 30 Comments good painfree motion, does not reproduce pain or reduce it either Hip Goniometric Range of Motion Hip Right Passive Testing Position Supine Flexion w/Knee Flexed 110 Internal Rotation 0 External Rotation 20 PT-OP-M Strength Start: 05/28/21 10:13 Freq: Status: Active Protocol: Document 05/29/21 10:30 AMB (Rec: 05/29/21 15:14 AMB [id number]) Hip Strength Hip Manual Muscle Testing Right Flexion (L2) 4- Good- Abduction 3+ Fair+ External Rotation 4- Good- Left Flexion (L2) 4+ Good+ Extension (S1) 4+ Good+ Abduction 4+ Good+ Knee Strength Knee Manual Muscle Testing Right Flexion (S2) 5 Normal Extension (L3) 5 Normal Left Flexion (S2) 5 Normal Extension (L3) 5 Normal Ankle/Foot Strength Ankle and Foot Manual Muscle Testing Right Dorsiflexion (L4) 4- Good- Plantarflexion (S1) 4+ Good+ Left Dorsiflexion (L4) 4+ Good+ Plantarflexion (S1) 4+ Good+ PT-OP-Q Treatments Start: 05/28/21 10:13 Freq: Status: Active Protocol: Document 06/08/21 10:32 AMB (Rec: 06/08/21 11:20 AMB [id number]) Therapeutic Exercises Supine Exercises mini bridges Reps/Minutes 10 Comments cued TA modified piriformis stretch Supine Exercise Name with towel Reps/Minutes 30x2 Sciatic nerve glide/ HS with AP Supine Exercise Name added to HEP Side bilateral Equipment Used towel around thigh Reps/Minutes 2x5 Comments good feedback, tighter on L TA march Supine Exercise Name alternating BLE- added to HEP Side bilateral Reps/Minutes x8 Comments SLR today- small range Sidelying Exercises 1 Sidelying Exercise Name hip abd Reps/Minutes 2x10 Comments cues for hip stacked, not rotating Sitting Exercises 2 Sitting Exercise Name alternating march, then pelvic circles. Comments 10 min 1 Sitting Exercise Name sciatic n glide Side bilateral Reps/Minutes 2 Comments felt fatigue in quad on R PT-OP-T Assessment and Plan Start: 05/28/21 10:13 Freq: Status: Active Protocol: Document 06/08/21 10:32 AMB (Rec: 06/08/21 11:20 AMB [id number]) Physical Therapy Assessment Assessment Summary Assessment [place] core/hip weakness continues, but was able to progress, worked a lot on form today. Physical Therapy Plan Next Visit Focus/Plan Next Note Type Treatment Note Next Visit Plan Next tx: check body mechanics sit/ stand/ sleep. Review new exercises: bird dog, sciatic n glid, modified piriformis stretch
--- NOTE | 2021-06-12 13:49 | PT.OTN ---
Current Diagnoses Unilateral primary osteoarthritis, right hip (06/12/21) Spondylosis without myelopathy or radiculopathy, lumbosacral region (06/12/21) Physical Therapy Treatment Note PT-OP-A Visit Information Start: 05/28/21 10:13 Freq: Status: Active Protocol: Document 06/12/21 13:09 SP (Rec: 06/12/21 13:51 SP [id number]) Out-Patient Physical Therapy Visit Information Visit Information Visit Type Treatment Note Visit Start Time 13:09 Visit Stop Time 13:49 Total Visit Minutes 40 Visit Number 4 Number of RED LEADER Visits 1 Precautions Precautions central canal stenosis with cauda equina impingement, anterolisthesis and retrolisthesis-- see MRI PT-OP-B Current Condition Start: 05/28/21 10:13 Freq: Status: Active Protocol: Document 05/29/21 10:30 AMB (Rec: 05/29/21 10:50 AMB [id number]) Current Condition History of Current Condition Onset Date 2 years ago, worsening Current Complaints LBP/ Right hip pain/weakness History of Current Condition Humphrey notes back pain/hip pain. 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 Notes pain started with sitting at work, they got a new chair and it was quite uncomfortable. Has to sit in the chair for about 14 hours a day when working. Wasn't able to get off the boat when going to port due to Covid. Takes a lot of ibuprofen. R leg is weaker than it used to be, also notes L leg numbness with walking. Walking for exercise . Bowel changes in last few months: anal leakage with coughing unless really tightens sphincter purposefully, even then can leak. Denies numbness in saddle area. Prior Treatments and Tests MRI dated 04/16/20 1. Multilevel degenerative disc disease. 2. Multilevel facet arthropathy. 3. Severe L4-L5 central canal narrowing with compression of the nerve roots of the cauda equina. 4. Severe bilateral L4-L5 neural foraminal narrowing with compression of the exiting bilateral L4 nerve roots. Future Testing and Treatments Planned Trying to get into neurosurgery appt, had MRI a couple of days ago up in [place], but hasn't received report for that yet. Treatment Goals Patient/Caregiver Goals REduce pain with walking, sleeping, sitting Prior Functional Status Baseline Function- ADL's Independent Baseline Function- Mobility Independent Current Functional Impairments (Reported) Functional Limitations- ADL's Sleeping, walking, sitting Personal Factors Other Personal Factors That May Effect 6'4 300# Therapy/Recovery PT-OP-C Subjective Start: 05/28/21 10:13 Freq: Status: Active Protocol: Document 06/12/21 13:09 SP (Rec: 06/12/21 13:51 SP [id number]) OP-PT Subjective Patient Comments Patient Comments Pt reports compliant with HEP and doing pretty good, improving able to engage core. Thinks feeling doing a little bit better. Saw spinal surgeon and suggesting laminectomy, thinking potenial next fall. PT-OP-G Mobility & Gait Start: 05/28/21 10:13 Freq: Status: Active Protocol: Document 05/29/21 10:30 AMB (Rec: 05/29/21 15:14 AMB [id number]) OP Gait Assessment Comments Gait Comments Antalgic gait with reduced trunk rotation and mild Trendelenburg on R, no AD PT-OP-J Posture/Palpation/Skin Start: 05/28/21 10:13 Freq: Status: Active Protocol: Document 05/29/21 10:30 AMB (Rec: 05/29/21 15:14 AMB [id number]) Posture Evaluation Comments Posture Comments Flat spine, pain over L4L5 and then radiates into ischial tub on R, no pain going down further into leg, but numbness goes down the left posterior thigh to the back of the knee when present. PT-OP-K Range of Motion Start: 05/28/21 10:13 Freq: Status: Active Protocol: Document 05/29/21 10:30 AMB (Rec: 05/29/21 15:14 AMB [id number]) Lumbar Spine Range of Motion Lumbar Spine Active Degrees Testing Position Standing Flexion 50 Extension 30 Comments good painfree motion, does not reproduce pain or reduce it either Hip Goniometric Range of Motion Hip Right Passive Testing Position Supine Flexion w/Knee Flexed 110 Internal Rotation 0 External Rotation 20 PT-OP-M Strength Start: 05/28/21 10:13 Freq: Status: Active Protocol: Document 05/29/21 10:30 AMB (Rec: 05/29/21 15:14 AMB [id number]) Hip Strength Hip Manual Muscle Testing Right Flexion (L2) 4- Good- Abduction 3+ Fair+ External Rotation 4- Good- Left Flexion (L2) 4+ Good+ Extension (S1) 4+ Good+ Abduction 4+ Good+ Knee Strength Knee Manual Muscle Testing Right Flexion (S2) 5 Normal Extension (L3) 5 Normal Left Flexion (S2) 5 Normal Extension (L3) 5 Normal Ankle/Foot Strength Ankle and Foot Manual Muscle Testing Right Dorsiflexion (L4) 4- Good- Plantarflexion (S1) 4+ Good+ Left Dorsiflexion (L4) 4+ Good+ Plantarflexion (S1) 4+ Good+ PT-OP-Q Treatments Start: 05/28/21 10:13 Freq: Status: Active Protocol: Document 06/12/21 13:09 SP (Rec: 06/12/21 13:51 SP [id number]) Therapeutic Exercises Supine Exercises mini bridges Reps/Minutes 10 Comments cued TA little more less wobble TA march Supine Exercise Name SLR lift small range Side bilateral Reps/Minutes x8 Comments occasional cuing for no LB arch, brace TA TA engagement Supine Exercise Name hooklying reviewed HEP Reps/Minutes 10 sec hold x3 review Comments good TA w/ breath Sidelying Exercises 1 Sidelying Exercise Name hip abd Reps/Minutes 2x10 Comments good form and stability self corrections Sitting Exercises piriformis stretch Side bilateral Reps/Minutes 30s x2 Comments stated better stretch seated vs laying down w/ towel 2 Sitting Exercise Name alternating march & LAQ, pelvic circles CW/CCW with purpose. Equipment Used 75 cm Tball Reps/Minutes x10 each Comments cued TA, elevated posture, slow movement each 1 Sitting Exercise Name sciatic n glide Side bilateral Reps/Minutes 2 Comments felt fatigue in quad on R Other Exercises bird dog Other Exercise Name UE/ LE ext Reps/Minutes 2x10 Comments cues for neutral spine, serratus press, level shld/ pelvis- improved Self-Care/Home Management Treatment Education Patient Education Body Mechanics,Pain Management ,Posture Other Education Time spent sleeping with use pillows for support: supine under thighs/ calves, prone under pelvis, sidelying between LEs, folded towel under ribcage and front arms. Great feedback response- ritesh more supported. PT-OP-T Assessment and Plan Start: 05/28/21 10:13 Freq: Status: Active Protocol: Document 06/12/21 13:09 SP (Rec: 06/12/21 13:51 SP [id number]) Physical Therapy Assessment Goals Two Impairment Pain Short Term Goal (STG) Humphrey will walk for 1 mile without numbness or pain of greater than 3/10. STG Duration 4 weeks [employer] Spinner Goal (LTG) Humphrey will report pain at worst in the past week as 5/10 or less. LTG Duration 8 weeks One Impairment Strength Short Term Goal (STG) Humphrey will be independent with a HEP for core and hip strengthening. STG Duration 4 weeks Retirement Goal (LTG) Humphrey will improve his hip strength to 4/5 in all planes. LTG Duration 6 weeks Assessment Summary Assessment Pt responded well to HEP review. Ed for pillow use sleeping found very helpful for alignment and painfree. Occasional cues for TA and spinal alignment during ex. Physical Therapy Plan Frequency and Duration Frequency of Treatment 2x/Week Duration of Treatment 6 weeks Plan of Care Start Date 05/29/21 Plan of Care End Date 07/10/21 Therapeutic Interventions Therapeutic Interventions Aquatic Therapy,Gait Training, Home Exercise Program,Manual Therapy,Neuromuscular Re- education,Self-Care/Home Management,Therapeutic Activities,Therapeutic Exercises Modalities Electric Stimulation,Hot Packs Next Visit Focus/Plan Next Note Type Treatment Note Next Visit Plan Next tx: recheck bird dog, continue supine TA HEP. Progress standing TA strengthening, trunk alignment during gait with TA support.
--- NOTE | 2021-06-16 15:01 | PT.OTN ---
Current Diagnoses Unilateral primary osteoarthritis, right hip (06/16/21) Spondylosis without myelopathy or radiculopathy, lumbosacral region (06/16/21) Physical Therapy Treatment Note PT-OP-A Visit Information Start: 05/28/21 10:13 Freq: Status: Active Protocol: Document 06/16/21 13:45 AMB (Rec: 06/16/21 14:31 AMB [id number]) Out-Patient Physical Therapy Visit Information Visit Information Visit Type Treatment Note Visit Start Time 13:45 Visit Stop Time 14:30 Total Visit Minutes 45 Visit Number 5 PT-OP-B Current Condition Start: 05/28/21 10:13 Freq: Status: Active Protocol: Document 05/29/21 10:30 AMB (Rec: 05/29/21 10:50 AMB [id number]) Current Condition History of Current Condition Onset Date 2 years ago, worsening Current Complaints LBP/ Right hip pain/weakness History of Current Condition Humphrey notes back pain/hip pain. 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 Notes pain started with sitting at work, they got a new chair and it was quite uncomfortable. Has to sit in the chair for about 14 hours a day when working. Wasn't able to get off the boat when going to port due to Covid. Takes a lot of ibuprofen. R leg is weaker than it used to be, also notes L leg numbness with walking. Walking for exercise . Bowel changes in last few months: anal leakage with coughing unless really tightens sphincter purposefully, even then can leak. Denies numbness in saddle area. Prior Treatments and Tests MRI dated 04/16/20 1. Multilevel degenerative disc disease. 2. Multilevel facet arthropathy. 3. Severe L4-L5 central canal narrowing with compression of the nerve roots of the cauda equina. 4. Severe bilateral L4-L5 neural foraminal narrowing with compression of the exiting bilateral L4 nerve roots. Future Testing and Treatments Planned Trying to get into neurosurgery appt, had MRI a couple of days ago up in [place], but hasn't received report for that yet. Treatment Goals Patient/Caregiver Goals REduce pain with walking, sleeping, sitting Prior Functional Status Baseline Function- ADL's Independent Baseline Function- Mobility Independent Current Functional Impairments (Reported) Functional Limitations- ADL's Sleeping, walking, sitting Personal Factors Other Personal Factors That May Effect 6'4 300# Therapy/Recovery PT-OP-C Subjective Start: 05/28/21 10:13 Freq: Status: Active Protocol: Document 06/16/21 13:45 AMB (Rec: 06/16/21 14:31 AMB [id number]) OP-PT Subjective Patient Comments Patient Comments Sitting in the chair for an hour and a half, getting up there was a lot of stiffness and pain. PT-OP-G Mobility & Gait Start: 05/28/21 10:13 Freq: Status: Active Protocol: Document 05/29/21 10:30 AMB (Rec: 05/29/21 15:14 AMB [id number]) OP Gait Assessment Comments Gait Comments Antalgic gait with reduced trunk rotation and mild Trendelenburg on R, no AD PT-OP-J Posture/Palpation/Skin Start: 05/28/21 10:13 Freq: Status: Active Protocol: Document 05/29/21 10:30 AMB (Rec: 05/29/21 15:14 AMB [id number]) Posture Evaluation Comments Posture Comments Flat spine, pain over L4L5 and then radiates into ischial tub on R, no pain going down further into leg, but numbness goes down the left posterior thigh to the back of the knee when present. PT-OP-K Range of Motion Start: 05/28/21 10:13 Freq: Status: Active Protocol: Document 05/29/21 10:30 AMB (Rec: 05/29/21 15:14 AMB [id number]) Lumbar Spine Range of Motion Lumbar Spine Active Degrees Testing Position Standing Flexion 50 Extension 30 Comments good painfree motion, does not reproduce pain or reduce it either Hip Goniometric Range of Motion Hip Right Passive Testing Position Supine Flexion w/Knee Flexed 110 Internal Rotation 0 External Rotation 20 PT-OP-M Strength Start: 05/28/21 10:13 Freq: Status: Active Protocol: Document 05/29/21 10:30 AMB (Rec: 05/29/21 15:14 AMB [id number]) Hip Strength Hip Manual Muscle Testing Right Flexion (L2) 4- Good- Abduction 3+ Fair+ External Rotation 4- Good- Left Flexion (L2) 4+ Good+ Extension (S1) 4+ Good+ Abduction 4+ Good+ Knee Strength Knee Manual Muscle Testing Right Flexion (S2) 5 Normal Extension (L3) 5 Normal Left Flexion (S2) 5 Normal Extension (L3) 5 Normal Ankle/Foot Strength Ankle and Foot Manual Muscle Testing Right Dorsiflexion (L4) 4- Good- Plantarflexion (S1) 4+ Good+ Left Dorsiflexion (L4) 4+ Good+ Plantarflexion (S1) 4+ Good+ PT-OP-Q Treatments Start: 05/28/21 10:13 Freq: Status: Active Protocol: Document 06/16/21 13:45 AMB (Rec: 06/16/21 14:52 AMB [id number]) Therapeutic Exercises Supine Exercises TA march Supine Exercise Name SLR lift small range Side bilateral Reps/Minutes x8 Comments occasional cuing for no LB arch, brace TA Sidelying Exercises clam Side bilateral Resistance #3 t band Reps/Minutes 2x10 1 Sidelying Exercise Name hip abd Reps/Minutes 2x10 Comments good form and stability self corrections Sitting Exercises 2 Sitting Exercise Name alternating march & LAQ, pelvic circles CW/CCW with purpose. Equipment Used 75 cm Tball Reps/Minutes x10 each Comments cued TA, elevated posture, slow movement each Standing Exercises t band shoulder ext Resistance #3 t band Reps/Minutes 2x10 Comments with focus on TA stab/posture 1 Standing Exercise Name heel raises Reps/Minutes 10 Comments single leg- very challenging on the right Other Exercises honey pose Other Exercise Name modified for knee pain/ stiffness Reps/Minutes 30x2 bird dog Other Exercise Name UE/ LE ext Reps/Minutes 2x10 Comments cues for neutral spine, serratus press, level shld/ pelvis- improved PT-OP-T Assessment and Plan Start: 05/28/21 10:13 Freq: Status: Active Protocol: Document 06/16/21 13:45 AMB (Rec: 06/16/21 14:31 AMB [id number]) Physical Therapy Assessment Goals Two Impairment Pain Short Term Goal (STG) Humphrey will walk for 1 mile without numbness or pain of greater than 3/10. STG Duration 4 weeks Longterm Goal (LTG) Humphrey will report pain at worst in the past week as 5/10 or less. LTG Duration 8 weeks One Impairment Strength Short Term Goal (STG) Humphrey will be independent with a HEP for core and hip strengthening. STG Duration 4 weeks Longterm Goal (LTG) Humphrey will improve his hip strength to 4/5 in all planes. LTG Duration 6 weeks Assessment Summary Assessment Humphrey is doing well, continues to have weakness and stiffness. Will continue to educate on strengthening and post op precautions. Continues to have sleeping difficulty although muscle relaxers are helping. Encouraged in body pillow. Physical Therapy Plan Next Visit Focus/Plan Next Note Type Treatment Note Next Visit Plan Next tx: continue to educate in post op precuations: log roll, avoiding Bend Lift Twist . recheck bird dog, continue supine TA HEP. Progress standing TA strengthening, trunk alignment during gait with TA support.
--- NOTE | 2021-06-19 14:30 | PT.OTN ---
Current Diagnoses Unilateral primary osteoarthritis, right hip (06/19/21) Spondylosis without myelopathy or radiculopathy, lumbosacral region (06/19/21) Physical Therapy Treatment Note PT-OP-A Visit Information Start: 05/28/21 10:13 Freq: Status: Active Protocol: Document 06/19/21 13:49 SP (Rec: 06/19/21 14:58 SP [id number]) Out-Patient Physical Therapy Visit Information Visit Information Visit Type Treatment Note Visit Start Time 13:49 Visit Stop Time 14:30 Total Visit Minutes 41 Visit Number 6 Number of RINK RAT Visits 1 Precautions Precautions central canal stenosis with cauda equina impingement, anterolisthesis and retrolisthesis-- see MRI PT-OP-B Current Condition Start: 05/28/21 10:13 Freq: Status: Active Protocol: Document 05/29/21 10:30 AMB (Rec: 05/29/21 10:50 AMB [id number]) Current Condition History of Current Condition Onset Date 2 years ago, worsening Current Complaints LBP/ Right hip pain/weakness History of Current Condition Humphrey notes back pain/hip pain. 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 Notes pain started with sitting at work, they got a new chair and it was quite uncomfortable. Has to sit in the chair for about 14 hours a day when working. Wasn't able to get off the boat when going to port due to Covid. Takes a lot of ibuprofen. R leg is weaker than it used to be, also notes L leg numbness with walking. Walking for exercise . Bowel changes in last few months: anal leakage with coughing unless really tightens sphincter purposefully, even then can leak. Denies numbness in saddle area. Prior Treatments and Tests MRI dated 04/16/20 1. Multilevel degenerative disc disease. 2. Multilevel facet arthropathy. 3. Severe L4-L5 central canal narrowing with compression of the nerve roots of the cauda equina. 4. Severe bilateral L4-L5 neural foraminal narrowing with compression of the exiting bilateral L4 nerve roots. Future Testing and Treatments Planned Trying to get into neurosurgery appt, had MRI a couple of days ago up in [place], but hasn't received report for that yet. Treatment Goals Patient/Caregiver Goals REduce pain with walking, sleeping, sitting Prior Functional Status Baseline Function- ADL's Independent Baseline Function- Mobility Independent Current Functional Impairments (Reported) Functional Limitations- ADL's Sleeping, walking, sitting Personal Factors Other Personal Factors That May Effect 6'4 300# Therapy/Recovery PT-OP-C Subjective Start: 05/28/21 10:13 Freq: Status: Active Protocol: Document 06/19/21 13:49 SP (Rec: 06/19/21 14:58 SP [id number]) OP-PT Subjective Patient Comments Patient Comments Pt reported little sore last few days but doing better today. Feels the exercises are helping. He reports more conscious of using core when walking and less back and leg discomfort. Pt stated modified bridge to SL bridge but hard level pelvis. PT-OP-G Mobility & Gait Start: 05/28/21 10:13 Freq: Status: Active Protocol: Document 05/29/21 10:30 AMB (Rec: 05/29/21 15:14 AMB [id number]) OP Gait Assessment Comments Gait Comments Antalgic gait with reduced trunk rotation and mild Trendelenburg on R, no AD PT-OP-J Posture/Palpation/Skin Start: 05/28/21 10:13 Freq: Status: Active Protocol: Document 05/29/21 10:30 AMB (Rec: 05/29/21 15:14 AMB [id number]) Posture Evaluation Comments Posture Comments Flat spine, pain over L4L5 and then radiates into ischial tub on R, no pain going down further into leg, but numbness goes down the left posterior thigh to the back of the knee when present. PT-OP-K Range of Motion Start: 05/28/21 10:13 Freq: Status: Active Protocol: Document 05/29/21 10:30 AMB (Rec: 05/29/21 15:14 AMB [id number]) Lumbar Spine Range of Motion Lumbar Spine Active Degrees Testing Position Standing Flexion 50 Extension 30 Comments good painfree motion, does not reproduce pain or reduce it either Hip Goniometric Range of Motion Hip Right Passive Testing Position Supine Flexion w/Knee Flexed 110 Internal Rotation 0 External Rotation 20 PT-OP-M Strength Start: 05/28/21 10:13 Freq: Status: Active Protocol: Document 05/29/21 10:30 AMB (Rec: 05/29/21 15:14 AMB [id number]) Hip Strength Hip Manual Muscle Testing Right Flexion (L2) 4- Good- Abduction 3+ Fair+ External Rotation 4- Good- Left Flexion (L2) 4+ Good+ Extension (S1) 4+ Good+ Abduction 4+ Good+ Knee Strength Knee Manual Muscle Testing Right Flexion (S2) 5 Normal Extension (L3) 5 Normal Left Flexion (S2) 5 Normal Extension (L3) 5 Normal Ankle/Foot Strength Ankle and Foot Manual Muscle Testing Right Dorsiflexion (L4) 4- Good- Plantarflexion (S1) 4+ Good+ Left Dorsiflexion (L4) 4+ Good+ Plantarflexion (S1) 4+ Good+ PT-OP-Q Treatments Start: 05/28/21 10:13 Freq: Status: Active Protocol: Document 06/19/21 13:49 SP (Rec: 06/19/21 14:58 SP [id number]) Therapeutic Exercises Supine Exercises mini bridges Supine Exercise Name good bridge> progressed to bridge july Reps/Minutes x5 B Comments cued TA little more, good demo level pelvis TA july Supine Exercise Name SLR lift small range Side bilateral Reps/Minutes x20 each LE Comments improved TA and bracing spinal alignment LTR Supine Exercise Name 1. B for stretch good- HEP review Side bilateral Resistance 2.AROM over ball:BLE over 55cm tball- to easy so stopped Reps/Minutes x3-5 each side Comments good feedback stretch, painfree range TA engagement Supine Exercise Name reviewed HEP Reps/Minutes 10 sec hold x3 prep review Comments good TA w/ breath Sidelying Exercises clam Sidelying Exercise Name reviewed HEP Side bilateral Resistance #3 t band Reps/Minutes 2x10 Comments good form trunk alignment and pacing control Standing Exercises trunk flexion stretch Standing Exercise Name add next tx Equipment Used counter top SLS: step over back luisa Standing Exercise Name single leg luisa- added to HEP Side bilateral Equipment Used luisa Reps/Minutes 10 reps x2 Comments cued trunk postural alignment, TA and hip abd fac, need contact with R LE t band shoulder ext Standing Exercise Name HEP reviewed Resistance #3 t band Reps/Minutes 2x10 Comments with focus on TA stab/posture 1 Standing Exercise Name heel raises: L, R (weaker/ challenging), both Reps/Minutes 10 Comments very weak on R, cued LLE can provide little suport as needed. Other Exercises honey pose Other Exercise Name modified for knee pain/ stiffness Resistance states to hard on knees Reps/Minutes 30x2 Comments DC bird dog Other Exercise Name UE/ LE ext- HEP review Reps/Minutes x10 Comments good form and pacing control Therapeutic Activity Therapeutic Activity log roll Reps/Minutes 2 Comments Pt demonstrated I in log roll mechanics and improved pacing and TA during sidelying<> supine. Gait Training Gait Activity postural/ core alignment Description f/b in mirrror Device Used 0 Level of Assistance S Surface firm Distance/Duration 20 ft x3 laps Treatment Focus increase core/ hip abd facilitation Comments improved self corrections, level pelvis/shlds. PT-OP-T Assessment and Plan Start: 05/28/21 10:13 Freq: Status: Active Protocol: Document 06/19/21 13:49 SP (Rec: 06/19/21 14:58 SP [id number]) Physical Therapy Assessment Goals Two Impairment Pain Short Term Goal (STG) Hmuphrey will walk for 1 mile without numbness or pain of greater than 3/10. STG Duration 4 weeks [employer] Goal (LTG) Humphrey will report pain at worst in the past week as 5/10 or less. LTG Duration 8 weeks One Impairment Strength Short Term Goal (STG) Humphrey will be independent with a HEP for core and hip strengthening. STG Duration 4 weeks Nursing Home Goal (LTG) Humphrey will improve his hip strength to 4/5 in all planes. LTG Duration 6 weeks Assessment Summary Assessment Pt improving in core and hip abductor strengthening. Progressed to bridge mini march and SLS step over/back for increase stability with less on contact rail during R stance. Physical Therapy Plan Frequency and Duration Frequency of Treatment 2x/Week Duration of Treatment 6 weeks Plan of Care Start Date 05/29/21 Plan of Care End Date 07/10/21 Therapeutic Interventions Therapeutic Interventions Aquatic Therapy,Gait Training, Home Exercise Program,Manual Therapy,Neuromuscular Re- education,Self-Care/Home Management,Therapeutic Activities,Therapeutic Exercises Modalities Electric Stimulation,Hot Packs Next Visit Focus/Plan Next Note Type Treatment Note Next Visit Plan Next tx: recheck SLS luisa. Add resisted side stepping at waist and or ankles. POC: Progress standing TA strengthening, trunk alignment during gait with TA support.
--- NOTE | 2021-06-22 16:09 | PT.OTN ---
Current Diagnoses Unilateral primary osteoarthritis, right hip (06/22/21) Spondylosis without myelopathy or radiculopathy, lumbosacral region (06/22/21) Physical Therapy Treatment Note PT-OP-A Visit Information Start: 05/28/21 10:13 Freq: Status: Active Protocol: Document 06/22/21 10:33 AMB (Rec: 06/22/21 11:18 AMB [id number]) Out-Patient Physical Therapy Visit Information Visit Information Visit Type Treatment Note Visit Start Time 10:30 Visit Stop Time 11:15 Total Visit Minutes 45 Visit Number 7 PT-OP-B Current Condition Start: 05/28/21 10:13 Freq: Status: Active Protocol: Document 05/29/21 10:30 AMB (Rec: 05/29/21 10:50 AMB [id number]) Current Condition History of Current Condition Onset Date 2 years ago, worsening Current Complaints LBP/ Right hip pain/weakness History of Current Condition Humphrey notes back pain/hip pain. 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 Notes pain started with sitting at work, they got a new chair and it was quite uncomfortable. Has to sit in the chair for about 14 hours a day when working. Wasn't able to get off the boat when going to port due to Covid. Takes a lot of ibuprofen. R leg is weaker than it used to be, also notes L leg numbness with walking. Walking for exercise . Bowel changes in last few months: anal leakage with coughing unless really tightens sphincter purposefully, even then can leak. Denies numbness in saddle area. Prior Treatments and Tests MRI dated 04/16/20 1. Multilevel degenerative disc disease. 2. Multilevel facet arthropathy. 3. Severe L4-L5 central canal narrowing with compression of the nerve roots of the cauda equina. 4. Severe bilateral L4-L5 neural foraminal narrowing with compression of the exiting bilateral L4 nerve roots. Future Testing and Treatments Planned Trying to get into neurosurgery appt, had MRI a couple of days ago up in [place], but hasn't received report for that yet. Treatment Goals Patient/Caregiver Goals REduce pain with walking, sleeping, sitting Prior Functional Status Baseline Function- ADL's Independent Baseline Function- Mobility Independent Current Functional Impairments (Reported) Functional Limitations- ADL's Sleeping, walking, sitting Personal Factors Other Personal Factors That May Effect 6'4 300# Therapy/Recovery PT-OP-C Subjective Start: 05/28/21 10:13 Freq: Status: Active Protocol: Document 06/22/21 10:30 AMB (Rec: 06/22/21 16:02 AMB [id number]) OP-PT Subjective Patient Comments Patient Comments Humphrey feels like he is ready for d/c PT-OP-G Mobility & Gait Start: 05/28/21 10:13 Freq: Status: Active Protocol: Document 05/29/21 10:30 AMB (Rec: 05/29/21 15:14 AMB [id number]) OP Gait Assessment Comments Gait Comments Antalgic gait with reduced trunk rotation and mild Trendelenburg on R, no AD PT-OP-J Posture/Palpation/Skin Start: 05/28/21 10:13 Freq: Status: Active Protocol: Document 05/29/21 10:30 AMB (Rec: 05/29/21 15:14 AMB [id number]) Posture Evaluation Comments Posture Comments Flat spine, pain over L4L5 and then radiates into ischial tub on R, no pain going down further into leg, but numbness goes down the left posterior thigh to the back of the knee when present. PT-OP-K Range of Motion Start: 05/28/21 10:13 Freq: Status: Active Protocol: Document 05/29/21 10:30 AMB (Rec: 05/29/21 15:14 AMB [id number]) Lumbar Spine Range of Motion Lumbar Spine Active Degrees Testing Position Standing Flexion 50 Extension 30 Comments good painfree motion, does not reproduce pain or reduce it either Hip Goniometric Range of Motion Hip Right Passive Testing Position Supine Flexion w/Knee Flexed 110 Internal Rotation 0 External Rotation 20 PT-OP-M Strength Start: 05/28/21 10:13 Freq: Status: Active Protocol: Document 05/29/21 10:30 AMB (Rec: 05/29/21 15:14 AMB [id number]) Hip Strength Hip Manual Muscle Testing Right Flexion (L2) 4- Good- Abduction 3+ Fair+ External Rotation 4- Good- Left Flexion (L2) 4+ Good+ Extension (S1) 4+ Good+ Abduction 4+ Good+ Knee Strength Knee Manual Muscle Testing Right Flexion (S2) 5 Normal Extension (L3) 5 Normal Left Flexion (S2) 5 Normal Extension (L3) 5 Normal Ankle/Foot Strength Ankle and Foot Manual Muscle Testing Right Dorsiflexion (L4) 4- Good- Plantarflexion (S1) 4+ Good+ Left Dorsiflexion (L4) 4+ Good+ Plantarflexion (S1) 4+ Good+ PT-OP-Q Treatments Start: 05/28/21 10:13 Freq: Status: Active Protocol: Document 06/22/21 10:30 AMB (Rec: 06/22/21 16:02 AMB [id number]) Therapeutic Exercises Supine Exercises table top tap down Reps/Minutes 3x5 Comments cued TA mini bridges Supine Exercise Name good bridge> progressed to bridge july Reps/Minutes x5 B Comments cued TA little more, good demo level pelvis Sciatic nerve glide/ HS with AP Supine Exercise Name added to HEP Side bilateral Equipment Used towel around thigh Reps/Minutes 2x5 Comments good feedback, tighter on L TA july Supine Exercise Name SLR lift small range Side bilateral Reps/Minutes x20 each LE Comments improved TA and bracing spinal alignment Sidelying Exercises 1 Sidelying Exercise Name hip abd Reps/Minutes 2x10 Comments good form and stability self corrections Sitting Exercises piriformis stretch Side bilateral Reps/Minutes 30s x2 Comments stated better stretch seated vs laying down w/ towel Standing Exercises 1 Standing Exercise Name heel raises: L, R (weaker/ challenging), both Reps/Minutes 10 Comments very weak on R, cued LLE can provide little suport as needed. Other Exercises bird dog Other Exercise Name UE/ LE ext- HEP review Reps/Minutes x10 Comments good form and pacing control PT-OP-T Assessment and Plan Start: 05/28/21 10:13 Freq: Status: Active Protocol: Document 06/22/21 10:33 AMB (Rec: 06/22/21 11:18 AMB [id number]) Physical Therapy Assessment Goals Two Impairment Pain Short Term Goal (STG) Humphrey will walk for 1 mile without numbness or pain of greater than 3/10. MET Walking 3.5 miles- last mile pain increases STG Duration MET [facility] Goal (LTG) Humphrey will report pain at worst in the past week as 5/10 or less. LTG Duration MET- in the evening with sitting 5/10 pain One Impairment Strength Short Term Goal (STG) Humphrey will be independent with a HEP for core and hip strengthening. STG Duration MET [employer] Goal (LTG) Humphrey will improve his hip strength to 4/5 in all planes. 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 Would encourage lumbar support. Pt' s strength is improving, and better awareness of gait. Pt is planning laminectomy in February, recommend continuing core, calf, hip strengthening exercises, then possible PT after surgery if recommended. Pt has not noticed any change in pelvic floor weakness. Physical Therapy Plan Discharge Physical Therapy Discharge Reasons Goals Met
== END 2021-06-23 07:45 ==
LOC: PHYS 10:30
PROVIDERS: Family Provider Family Medicine; PCP Family Medicine; Referring Provider Family Medicine; Visit Provider Family Medicine
DX: M16.11 Unilateral primary osteoarthritis, right hip (principal); M47.817 Spondylosis without myelopathy or radiculopathy, lumbosacral region
CPT/HCPCS: 97110; 97116; 97162; 97535

== ENCOUNTER → 2022-03-31 07:07 | Outpatient (CLI) | payer OTHER, SELFPAY ==
[2022-03-31 08:45] LABS: Add Manual Diff / Slide Review NO; Basophils Absolute Auto 0 /uL (0-100); Basophils Percent Auto 0.3 % (0-2); Eosinophils Absolute Auto 100 /uL (0-450); Eosinophils Percent Auto 2.1 % (2-4); Hematocrit 44.7 % (41-53); Hemoglobin 15.4 g/dL (13.5-17.5); Lymphocytes Absolute Auto 1200 /uL (1100-4500); Lymphocytes Percent Auto 34.1 % (25-40); Mean Corpuscular HGB Conc 34.5 % (30-36); Mean Corpuscular Hemoglobin 32.3 PG (26-34); Mean Corpuscular Volume 93.9 fL (80-100); Monocytes Absolute Auto 400 /uL (0-900); Monocytes Percent Auto 11.1 % (3-14); Neutrophils Absolute Auto 1800 /uL (1500-7000); Neutrophils Percent Auto 52.4 % (50-75); Platelet Count 210 X10^3/uL (150-400); Red Blood Cell Count 4.76 X10^6/uL (4.5-5.9); White Blood Cell Count 3.5 X10^3/uL (4.5-11.0)
[2022-03-31 09:26] LABS: Alanine Aminotransferase 41 IU/L (<50); Albumin 4.5 g/dL (3.5-5.0); Albumin Globulin Ratio 1.6 (1.0-2.8); Alkaline Phosphatase 86 U/L (38-126); Aspartate Aminotransferase 29 IU/L (17-59); BUN Creatinine Ratio 18.8 (6-22); Bilirubin Total 0.9 mg/dL (0.2-1.3); Blood Urea Nitrogen 15 mg/dL (9-20); Calcium 9.4 mg/dL (8.4-10.2); Carbon Dioxide 25 mmol/L (22-32); Chloride 103 mmol/L (98-107); Cholesterol 146 mg/dL (140-199); Estimated Glomerular Filt Rate > 60 mL/min (>60); Globulin 2.8 g/dL (1.7-4.1); Glucose 108 mg/dL (80-110); HDL Cholesterol 61 mg/dL (40-60); HEMOLYSIS < 15 (0-50); LDL Cholesterol Calculated 69 mg/dL (<100); Potassium 4.5 mmol/L (3.4-5.1); Sodium 139 mmol/L (137-145); Total Protein 7.3 g/dL (6.3-8.2); Triglycerides 78 mg/dL (35-150); Uric Acid 5.9 mg/dL (3.5-8.5)
[2022-03-31 09:51] LABS: TSH w/ Reflex to FT4 2.38 uIU/mL (0.47-4.68)
[2022-03-31 09:52] LABS: Prostate Specific Antigen Scrn 0.322 ng/mL (0.1-4.0)
== END ==
PROVIDERS: Family Provider Family Medicine; PCP Family Medicine; Referring Provider Family Medicine; Visit Provider Family Medicine
DX: D72.819 Decreased white blood cell count, unspecified (principal); E03.9 Hypothyroidism, unspecified; E78.2 Mixed hyperlipidemia; I10 Essential (primary) hypertension; Z12.5 Encounter for screening for malignant neoplasm of prostate
CPT/HCPCS: 36415; 80053; 80061; 84443; 84550; 85025; G0103

== ENCOUNTER → 2022-05-10 11:12 | Outpatient (CLI) | payer OTHER, SELFPAY ==
[2022-05-10 13:56] LABS: COVID19 -Nasal RAPID Negative (Negative)
== END ==
PROVIDERS: Family Provider Family Medicine; PCP Family Medicine; Visit Provider Surgery
DX: Z01.812 Encounter for preprocedural laboratory examination (principal); Z20.822 Contact with and (suspected) exposure to COVID-19
CPT/HCPCS: 87635; C9803

== ENCOUNTER 2022-08-19 06:44 | Day surgery (SDC) | payer OTHER, SELFPAY ==
--- NOTE | 2022-08-19 | PATH_ITS ---
[facility] Accession Number: [id number] No. of containers..01 Tissue . 01 Material submitted: . colon - CECAL POLYPS X3 . 01 Diagnosis: Cecal Polyps x3, Biopsy: Tubular adenoma x2. Additional colonic mucosal fragments with features of inflammatory polyp. ANITA 08/24/2022 1142 Local . 01 Electronically signed: . Jacinda Schultz MD, Pathologist NPI- [id number] . 01 Gross description: . CECAL POLYPS X3: Received in formalin are multiple fragment(s) of shoemaker, soft tissue measuring 1.4 x 0.7 x 0.1 cm in aggregate submitted entirely in 1 cassette(s) /CPE 08/21/2022 0923 Local . 01 Pathologist provided ICD-10: D12.0, K51.40 . 01 CPT . 407367 Specimen Comment: A courtesy copy of this report has been sent to [phone] Performed at: 01 [facility] [address] [place] [address] [address], [place], [place] [id number] MD Corey Salguero MD Phone: [phone]
[2022-08-19] MEDS: LACTATED RINGERS 1,000 ML 42 ML IV (07:17)
[2022-08-19 07:22] VITALS: BP 132/86; PULSE 67; RESP 16; TEMP 36.9; O2SAT 95; BMI 36.7
--- NOTE | 2022-08-19 07:37 | P.HP_ITS ---
History of Present Illness History of Present Illness Date Patient Seen: 08/19/22 Time Patient Seen: 07:37 Chief complaint: Colonoscopy Narrative: Manjit is a 62-year-old man who is here for colonoscopy. He last had a colonoscopy 8 years ago and he thinks 3 polyps were removed. No family history of colon cancer. [facility], [facility] Medical History (Updated 08/19/22 @ 07:38 by Mayank Rubio MD) Gout (~1995) Head and neck cancer (~2010) Lip lesion Lumbar and sacral osteoarthritis Osteoarthritis of right hip Surgical History (Updated 06/01/18 @ 20:25 by Silvana Orosco) Anesthesia History of left knee surgery (~1975) History of right knee surgery (~2013) Family History (Updated 10/21/15 @ 00:00 by Conversion Provider) Brother Age: 67 Stomach cancer Brother Heart disease Father Age: 86 Lung cancer Stroke Mother Heart disease Social History household members: spouse Smoking Status: Former smoker alcohol intake: current Meds Home Medications and Allergies Home Medications Medication Instructions Recorded Confirmed Type sildenafil 25 mg tablet See Rx Instructions .Route 12/31/21 08/19/22 Rx .COMPLEX #30 tabs allopurinol 300 mg tablet 300 mg PO QDAY #90 tabs 03/24/22 08/19/22 Rx amlodipine 10 mg tablet 10 mg PO DAILY #90 tabs 03/24/22 08/19/22 Rx levothyroxine 75 mcg tablet 75 mcg PO DAILY #90 tabs 03/24/22 08/19/22 Rx simvastatin 20 mg tablet 20 mg PO HS #90 tabs 03/24/22 08/19/22 Rx methocarbamol 750 mg tablet 750 mg PO TID PRN Pain (Scale 05/25/22 08/19/22 History Score 1-3) Allergies Allergy/AdvReac Type Severity Reaction Status Date / Time Penicillins [PENICILLINS] Allergy Mild childhood Verified 08/19/22 07:17 Exam Vital Signs (past 8 hours): - 08/19/22 07:22 Temperature 98.4 F Pulse Rate 67 Respiratory Rate 16 Blood Pressure 132/86 Pulse Oximetry 95 Oxygen Delivery Method Room Air Oxygen Delivery Method Room Air Const General: No acute distress Assessment & Plan Assessment and plan (1) Personal history of colonic polyps: Status: Acute Plan Reviewed the risks and benefits of colonoscopy he would like to proceed.
[2022-08-19 08:12] VITALS: BP 115/76; PULSE 86; RESP 16; TEMP 36.4; O2SAT 95
--- NOTE | 2022-08-19 08:13 | PM.OP.COLON ---
Operative Date/Time/Diagnoses Date of procedure: 08/19/22 Time of procedure: 08:13 Pre-op diagnosis: Colon cancer screening and history of polyps Post-op diagnosis: same Procedure & Clinicians Study performed: Colonoscopy Same procedure as scheduled: Yes Surgeon: Mayank Rubio Procedure Notes Procedure in detail: Surgeon: Mayank Rubio MD Anesthesia: Odin Vazquez CRNA Procedure: The patient was brought to the endoscopy suite, placed in left lateral decubitus position. The patient was connected to monitoring devices. A time-out was performed. Sedation was administered. Once the patient was adequately sedated, a digital rectal exam was performed and was normal. The scope was then inserted and advanced to the cecum where the appendiceal orifice was identified and photographed. The scope was then slowly withdrawn over greater than 6 minutes. The terminal ileum was intubated and no abnormalities were seen. There were 3 polyps seen in the cecum. Two of them were about 4 mm and 1 was about 1 cm. The smaller polyps were removed with a cold snare and the large polyp was removed with a hot snare. There were scattered diverticula in the sigmoid colon. The scope was retroflexed in the rectum. No abnormalities were seen in the rectum. The scope was straightened and removed. The patient was awakened and brought to recovery. Scope withdrawal time: 13 minutes Sedation time: 16 minutes EBL: 5 mL Findings: 3 polyps in the cecum the largest of which was 1 cm and scattered diverticulosis Post-procedure Disposition: PACU
[2022-08-19 08:16] VITALS: BP 126/88; PULSE 86; RESP 16; TEMP 36.8; O2SAT 98
[2022-08-19 08:21] VITALS: BP 141/99; PULSE 84; RESP 16; TEMP 36.8; O2SAT 98
== END 2022-08-19 08:29 | disposition home or self-care (01) ==
PROVIDERS: Family Provider Family Medicine; PCP Family Medicine; Referring Provider Surgery; Visit Provider Surgery
PROC: 0DJD8ZZ Inspection of Lower Intestinal Tract, Via Natural or Artificial Opening Endoscopic (ICD-10-PCS; CPT 45378; principal; 2022-08-19 07:45)
DX: Z12.11 Encounter for screening for malignant neoplasm of colon (principal); Z86.010 Personal history of colon polyps; K57.30 Diverticulosis of large intestine without perforation or abscess without bleeding; D12.0 Benign neoplasm of cecum
CPT/HCPCS: 45385; J2704

== ENCOUNTER → 2022-09-29 09:16 | Outpatient (CLI) | payer OTHER, SELFPAY ==
--- NOTE | 2022-09-29 09:17 | DI.MRI.S_ITS ---
PROCEDURE: MR FEMUR RT WO CON INDICATIONS: Idiopathic aseptic necrosis of unspecified bone TECHNIQUE: Noncontrast coronal and sagittal T1 spin echo and STIR; axial T1 spin echo and T2 fast spin echo with fat saturation through the right femur. COMPARISON: [facility], RG, BILATERAL HIP 2VW, 09/02/2022, 8:40. [facility], CR, XR HIP W PEL IF DONE RT 2V, 05/21/2021, 14:30. FINDINGS: Image quality: Excellent. Bones: Asymmetric moderate right hip joint osteoarthritic changes are seen with joint space narrowing, subchondral sclerosis and marginal osteophyte formation. Subtle geographic area of signal abnormality involving weight-bearing portion of right femoral head is seen concerning for early avascular necrosis. No marrow signal abnormality is noted in mid to distal right femoral shaft. No suspicious bony lesions. No cortical erosion or periosteal reaction is seen. Soft tissues: The scanned muscles demonstrate normal overall bulk and internal signal. Subcutaneous tissues appear normal as well. No soft tissue masses are present. Small right knee joint effusion is seen. No gross loose bodies. IMPRESSION: 1. Asymmetric moderate right hip joint osteoarthritis. Suggestion of avascular necrosis involving weight-bearing portion of right femoral head better evaluated on MRI of the right hip from the same day. 2. No marrow signal is seen in mid to distal right femoral shaft. No fracture or dislocation. 3. No gross right thigh muscle or tendon signal abnormalities. Right knee joint effusion, no gross loose bodies. Dictated by: Shan Torres M.D. on 09/29/2022 at 12:56 Approved by: Shan Torres M.D. on 09/29/2022 at 13:26
--- NOTE | 2022-09-29 12:18 | DI.MRI.S_ITS ---
PROCEDURE: MR HIP RT WO CON INDICATIONS: Idiopathic aseptic necrosis of unspecified bone TECHNIQUE: Noncontrast coronal T1 spin echo and STIR through the bony pelvis. Coronal and axial T2 fast spin echo with fat saturation, sagittal T1 spin echo, and oblique axial T2 fast spin echo with fat saturation through the hip. COMPARISON: None. FINDINGS: Image quality: Excellent. Bones and joints: Asymmetric moderate right hip joint osteoarthritic changes are noted with significant joint space narrowing, subchondral sclerosis and edema and subcortical cystic changes. No acute fracture or dislocation. Geographic area of heterogeneously increased T2 hyperintense signal involving superior anterior weight-bearing portion of right femoral head concerning for early avascular necrosis. The visualized lower lumbar spine appears normally aligned. Tendons and ligaments: Distal right gluteus medius and minimus tendinosis and low-grade partial-thickness tear at their insertion on greater trochanter is seen.. The nearby proximal iliotibial band also appears intact. The iliopsoas tendon appears intact, without adjacent bursal fluid collections or evidence for impingement syndrome. The origin of the hamstring tendon is intact at the ischial tuberosity, as well as the associated sacrotuberous ligament. The straight and reflected heads of the rectus femoris muscle origin appear intact, as well as the conjoint tendon. The ligamentum teres appears intact where visualized. Labrum and cartilage: Extensive signal abnormality throughout right hip labrum is noted suggestive of extensive right hip labral tear. Thinning of articulating cartilages in femoral head is seen. The alpha angle of the femur is within normal limits at less than 55 degrees. Soft tissues: Visualized muscles demonstrate normal bulk and internal signal. Quadratus femoris muscle demonstrates no internal edema to suggest ischiofemoral impingement. The proximal sciatic neurovascular bundle appears normal adjacent to the hamstring tendons. No free pelvic fluid. Bladder wall thickness is normal. Genitourinary structures and bowel loops appear normal where visualized. IMPRESSION: 1. Asymmetric moderate right hip joint osteoarthritis. No fracture or dislocation. 2. Suggestion of avascular necrosis involving superior anterior right femoral head weight-bearing portion. 3. Suggestion of extensive right hip labral tear. 4. Tendinosis and low-grade partial-thickness tear involving distal right gluteus medius and minimus at their distal insertion. No other muscle or tendon signal abnormality is seen. Dictated by: Shan Torres M.D. on 09/29/2022 at 13:26 Approved by: Shan Torres M.D. on 09/29/2022 at 13:31
== END ==
PROVIDERS: Family Provider Family Medicine; PCP Family Medicine; Referring Provider Physical Medicine & Rehabilitation Pain Medicine; Visit Provider Physical Medicine & Rehabilitation Pain Medicine
DX: M16.11 Unilateral primary osteoarthritis, right hip (principal); M87.00 Idiopathic aseptic necrosis of unspecified bone; S76.011A Strain of muscle, fascia and tendon of right hip, initial encounter
CPT/HCPCS: 73718; 73721

== ENCOUNTER → 2022-10-04 09:53 | Outpatient (CLI) | payer OTHER, SELFPAY ==
[2022-10-04 10:14] LABS: Add Manual Diff / Slide Review NO; Basophils Absolute Auto 0 /uL (0-100); Basophils Percent Auto 0.5 % (0-2); Eosinophils Absolute Auto 100 /uL (0-450); Eosinophils Percent Auto 2.6 % (2-4); Hematocrit 42.5 % (41-53); Hemoglobin 14.8 g/dL (13.5-17.5); Lymphocytes Absolute Auto 1300 /uL (1100-4500); Lymphocytes Percent Auto 31.8 % (25-40); Mean Corpuscular HGB Conc 34.8 % (30-36); Mean Corpuscular Hemoglobin 32.5 PG (26-34); Mean Corpuscular Volume 93.4 fL (80-100); Monocytes Absolute Auto 400 /uL (0-900); Monocytes Percent Auto 9.3 % (3-14); Neutrophils Absolute Auto 2200 /uL (1500-7000); Neutrophils Percent Auto 55.8 % (50-75); Platelet Count 220 X10^3/uL (150-400); Red Blood Cell Count 4.55 X10^6/uL (4.5-5.9); Red Cell Distribution Width 13.1 % (11.6-14.8)
== END ==
PROVIDERS: Family Provider Family Medicine; PCP Family Medicine; Referring Provider Family Medicine; Visit Provider Family Medicine
DX: D72.819 Decreased white blood cell count, unspecified (principal); E03.9 Hypothyroidism, unspecified; E78.2 Mixed hyperlipidemia; I10 Essential (primary) hypertension
CPT/HCPCS: 36415; 85025

== ENCOUNTER → 2023-02-24 10:18 | Outpatient (CLI) | payer OTHER, SELFPAY ==
--- NOTE | 2023-02-24 10:19 | DI.RAD.S_ITS ---
PROCEDURE: XR KNEE RT 3V INDICATIONS: Right knee strain TECHNIQUE: 3 views of the knee were acquired. COMPARISON: None. FINDINGS: Bones: No fractures or dislocations. No suspicious bony lesions. Moderate tricompartmental knee joint degeneration most pronounced in the patellofemoral joint and lateral femorotibial joint. Chondrocalcinosis.. Soft tissues: Moderate joint effusion. No suspicious soft tissue calcifications. IMPRESSION: 1. Moderate osteoarthritic changes. 2. Chondrocalcinosis. Common etiologies include hyperparathyroidism and CPPD. 3. Moderate knee joint effusion. Dictated by: Keyla Lagos M.D. on 02/24/2023 at 12:34 Approved by: Keyla Lagos M.D. on 02/24/2023 at 12:36
== END ==
PROVIDERS: Family Provider Family Medicine; PCP Family Medicine; Referring Provider Nurse Practitioner Family; Visit Provider Nurse Practitioner Family
DX: S86.911A Strain of unspecified muscle(s) and tendon(s) at lower leg level, right leg, initial encounter (principal); M25.461 Effusion, right knee; M11.261 Other chondrocalcinosis, right knee
CPT/HCPCS: 73562

== ENCOUNTER → 2023-04-05 08:10 | Outpatient (CLI) | payer OTHER, SELFPAY ==
[2023-04-05 10:17] LABS: Add Manual Diff / Slide Review NO; Basophils Absolute Auto 0 /uL (0-100); Basophils Percent Auto 0.3 % (0-2); Eosinophils Absolute Auto 100 /uL (0-450); Eosinophils Percent Auto 1.9 % (2-4); Hematocrit 43.8 % (41-53); Hemoglobin 15.2 g/dL (13.5-17.5); Lymphocytes Absolute Auto 1100 /uL (1100-4500); Mean Corpuscular HGB Conc 34.7 % (30-36); Mean Corpuscular Volume 95.2 fL (80-100); Monocytes Absolute Auto 700 /uL (0-900); Monocytes Percent Auto 15.4 % (3-14); Neutrophils Absolute Auto 2900 /uL (1500-7000); Neutrophils Percent Auto 59.4 % (50-75); Platelet Count 208 X10^3/uL (150-400); Red Cell Distribution Width 13.1 % (11.6-14.8); White Blood Cell Count 4.8 X10^3/uL (4.5-11.0)
[2023-04-05 10:42] LABS: Alanine Aminotransferase 33 IU/L (<50); Albumin 4.7 g/dL (3.5-5.0); Albumin Globulin Ratio 1.8 (1.0-2.8); Alkaline Phosphatase 77 U/L (38-126); Aspartate Aminotransferase 29 IU/L (17-59); BUN Creatinine Ratio 16.3 (6-22); Bilirubin Total 0.9 mg/dL (0.2-1.3); Blood Urea Nitrogen 13 mg/dL (9-20); Calcium 10.1 mg/dL (8.4-10.2); Carbon Dioxide 25 mmol/L (22-32); Chloride 101 mmol/L (98-107); Cholesterol 150 mg/dL (140-199); Estimated Glomerular Filt Rate > 60 mL/min (>60); Globulin 2.6 g/dL (1.7-4.1); Glucose 110 mg/dL (80-110); HDL Cholesterol 63 mg/dL (40-60); HEMOLYSIS < 15 (0-50); LDL Cholesterol Calculated 68 mg/dL (<100); Potassium 4.6 mmol/L (3.4-5.1); Sodium 136 mmol/L (137-145); Total Protein 7.3 g/dL (6.3-8.2); Triglycerides 93 mg/dL (35-150)
[2023-04-05 11:10] LABS: Prostate Specific Antigen Scrn 0.253 ng/mL (0.1-4.0)
[2023-04-05 11:25] LABS: Creatinine Urine Random 59.5 mg/dL
[2023-04-05 11:26] LABS: TSH w/ Reflex to FT4 3.01 uIU/mL (0.47-4.68)
[2023-04-05 11:27] LABS: Hep C Virus Ab w/Reflex Quant NEGATIVE s/c (NEGATIVE)
[2023-04-05 11:28] LABS: Microalbumin Urine Random < 0.6 mg/dL (0-1.6)
== END ==
PROVIDERS: Family Provider Family Medicine; PCP Family Medicine; Referring Provider Family Medicine; Visit Provider Family Medicine
DX: E78.2 Mixed hyperlipidemia (principal); E03.9 Hypothyroidism, unspecified; M10.9 Gout, unspecified; Z12.5 Encounter for screening for malignant neoplasm of prostate
CPT/HCPCS: 36415; 80053; 80061; 82043; 82570; 84443; 85025; 86803; G0103

== ENCOUNTER → 2023-06-14 07:36 | Outpatient (CLI) | payer OTHER, SELFPAY ==
[2023-06-14 07:51] LABS: Urine Volume 10mL (spun)
[2023-06-14 08:11] LABS: Add Manual Diff / Slide Review NO; Basophils Absolute Auto 0 /uL (0-100); Basophils Percent Auto 0.5 % (0-2); Eosinophils Absolute Auto 100 /uL (0-450); Eosinophils Percent Auto 2.1 % (2-4); Hematocrit 43.1 % (41-53); Hemoglobin 14.8 g/dL (13.5-17.5); Lymphocytes Absolute Auto 1000 /uL (1100-4500); Lymphocytes Percent Auto 27.4 % (25-40); Mean Corpuscular HGB Conc 34.4 % (30-36); Mean Corpuscular Volume 95.9 fL (80-100); Monocytes Absolute Auto 300 /uL (0-900); Monocytes Percent Auto 7.3 % (3-14); Neutrophils Absolute Auto 2200 /uL (1500-7000); Neutrophils Percent Auto 62.7 % (50-75); Platelet Count 204 X10^3/uL (150-400); Red Cell Distribution Width 13.3 % (11.6-14.8); White Blood Cell Count 3.6 X10^3/uL (4.5-11.0)
[2023-06-14 08:49] LABS: BUN Creatinine Ratio 21.4 (6-22); Blood Urea Nitrogen 15 mg/dL (9-20); Calcium 9.7 mg/dL (8.4-10.2); Carbon Dioxide 24 mmol/L (22-32); Chloride 103 mmol/L (98-107); Estimated Glomerular Filt Rate > 60 mL/min (>60); Glucose 135 mg/dL (80-110); HEMOLYSIS < 15 (0-50); Potassium 4.4 mmol/L (3.4-5.1); Sodium 138 mmol/L (137-145)
[2023-06-14 10:32] LABS: Appearance Urine UA CLEAR; Bilirubin Urine UA NEGATIVE (NEGATIVE); Color Urine UA YELLOW; Glucose Urine UA NEGATIVE (Negative); Ketones Urine UA NEGATIVE (NEGATIVE); Leukocyte Esterase Urine UA NEGATIVE (NEGATIVE); Nitrite Urine UA NEGATIVE (Negative); Occult Blood Urine UA NEGATIVE (Negative); Protein Urine UA NEGATIVE (Negative); Specific Gravity Urine UA 1.025 (1.000-1.035); Urobilinogen Urine UA 0.2 E.U./dL (0.2); pH Urine UA 5.5 (4.5-8.0)
[2023-06-14 10:45] LABS: Bacteria Urine None Seen; Culture Indicated Urine Cult Not Indicated; RBC Urine None Seen (0-5/HPF); Squamous Epithelial Cell Urine None Seen (0-5/HPF); WBC Urine None Seen (0-5/HPF)
[2023-06-14 12:36] LABS: Hemoglobin A1C% w Est Avg Glu 5.5 % (4.0-6.0)
== END ==
LOC: LAB 07:38
PROVIDERS: Family Provider Family Medicine; PCP Family Medicine; Referring Provider Orthopaedic Surgery; Visit Provider Orthopaedic Surgery
DX: Z01.818 Encounter for other preprocedural examination (principal); R73.9 Hyperglycemia, unspecified; M25.551 Pain in right hip; Z01.812 Encounter for preprocedural laboratory examination; N39.0 Urinary tract infection, site not specified
CPT/HCPCS: 36415; 80048; 81001; 83036; 85025; 93005

== ENCOUNTER 2023-08-16 08:40 | Day surgery (SDC) | payer OTHER, SELFPAY ==
[2023-08-10 08:48] VITALS: BMI 36.5
[2023-08-16] VITALS (10 sets, daily range): BP systolic 127–152; BP diastolic 74–99; PULSE 72–104; RESP 12–20; TEMP 35.4–36.8; O2SAT 92–99; BMI 36.5
--- NOTE | 2023-08-16 06:00 | DI.RAD.S_ITS ---
PROCEDURE: XR PELVIS 1-2V INDICATIONS: INNER OP TECHNIQUE: Intra-operative view of the pelvis and hip acquired. COMPARISON: [facility], CR, XR HIP W PEL IF DONE RT 2V, 05/21/2021, 14:30. FINDINGS: Bones: Intraoperative devices prior to placement of arthroplasty prostheses are in expected positions. No fractures or suspicious bony lesions. Soft tissues: Overlying surgical retractors are present, along with other intraoperative changes. IMPRESSION: Intraoperative right hip arthroplasty. Dictated by: Umu Longoria M.D. on 08/16/2023 at 16:58 Approved by: Umu Longoria M.D. on 08/16/2023 at 16:58
[2023-08-16] MEDS: LACTATED RINGERS 1,000 ML 42 ML IV ×2 (09:30→13:32)
[2023-08-16] MEDS: VANCOMYCIN 1,000 MG/200 ML PIGGYBACK 200 MG IV (10:30)
--- NOTE | 2023-08-16 11:44 | PM.PREOP ---
Pre-operative Note Interval Note History & Physical reviewed/Exam performed by Physician: Yes Changes to H&P: No
--- NOTE | 2023-08-16 11:45 | PM.OP.1 ---
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 Non-operative management has failed and the patient has requested total hip replacement. The risks, benefits and alternatives to surgery were discussed with the patient prior to proceeding. Risks discussed included, but were not limited to, failure to relieve pain, leg length discrepancy, dislocation, stiffness, infection, nerve damage, deep venous thrombosis, pulmonary embolism, stroke, coma, heart attack, permanent paralysis and , as well as the potential need for eventual revision of the prosthetic. Surgeon: Tavia Cottrell Post Acute Care Nurse Practitioner: James Ojeda Anesthesia Type: General and Spinal Operative Notes Findings: Severe right hip OA some component of AVN Closure Type: primary Specimen(s): none sent Prosthetic devices, grafts, tissues, transplants, or devices: Cottrell and nephew R3 size 60, neutral poly liner,one 6.5 mm screw, polar stem standard offset size 8 with collar, 40 mm Oxinium head +0 neck Estimated Blood Loss (mL): 250 Blood products transfused: none Procedure in detail: The patient was seen in the pre-operative area, where the patient identified the right hip as the operative site and this was marked with my initials. The patient received pre-operative antibiotics and was taken to the operating room and placed on the operative table in the left lateral decubitus position after satisfactory anesthesia. A cable tool operator out was performed. The right leg was prepared from the ankle to the iliac crest with ChloroPrep in the usual fashion and draped through sterile drapes. A PA was used during the procedure and was essential for intraoperative retraction and safe implantation of the components. The hip was approached through an approximately 20 cm incision centered over the greater trochanter and curving gently posteriorly as it went proximally. This was carried sharply to the fascia bria, which was divided and retracted with a self retaining retractor. The trochanteric bursa was excised with care being taken to avoid the sciatic nerve, which was identified and protected throughout the case. The short external rotators were incised and the capsulomuscular flap was raised and tagged for later repair. The hip was dislocated, and a femoral neck osteotomy performed approximately 15 mm above the lesser trochanter. Retractors were placed around the femur. The canal was opened with a box cutting osteotome, followed by a T handled reamer and a lateralizing reamer. The chili pepper broach was then used, followed by sequential broaching until there was good stability of the broach in the femur. Retractors were placed to expose the acetabulum. The labrum and central soft tissues were removed. Reaming was performed initially going up in 2 mm increments, then 1 mm increments until good bite was obtained with an odd sized reamer. The cup 1 mm larger than the last reamer was then inserted using the appropriate anteversion guides. It was further stabilized with a screw. A trial neutral liner was placed. The broach was placed in the canal. A trial head and neck were then placed and the hip relocated and checked for leg length and stability. An intraoperative film confirmed the component position and no evidence of fracture. The patient was stable in the position of sleep, of squatting, and could be put through a range of motion with 45 degrees internal rotation without dislocation. At 90 degrees flexion, internal rotation to 70? was possible before dislocation. This was felt to be satisfactory and the appropriate components were opened, and the trials were removed. The acetabular liner was impacted into position. The final stem was then impacted into the prepared femoral canal. A brief Betadine soak was performed while trialing with head options. The hip was meticulously irrigated with normal saline. Finally the femoral head was impacted onto the stem. The acetabulum was cleared of all material and the hip relocated one final time. The capsulomuscular flap was then repaired to the greater trochanter though an awl hole using the tag sutures. The short external rotators were repaired with a nonabsorbable suture. A deep drain was placed and brought out anteriorly. The fascia bria was closed with Vicryl. The subcutaneous layer was closed with barbed sutures and SteriStrips. An Aquacel Ag dressing was applied and the patient was taken to recovery having tolerated the procedure well. Complications: none Post-operative Condition: stable Disposition: Acute Care Plan for aftercare: The patient will be maintained on a standard total hip replacement protocol with weight bearing as tolerated and posterior hip precautions. The patient will receive Aspirin and sequential compression devices for DVT prophylaxis. The patient will be discharged home when safe for the home environment.
[2023-08-16] MEDS: CEFAZOLIN 2 GM/100 ML PREMIX 100 ML IV (12:25)
[2023-08-16] MEDS: CEFAZOLIN VIAL 1 GM in SODIUM CHLORIDE 0.9% 100 ML IV (12:25)
[2023-08-16] MEDS: TRANEXAMIC ACID 1,000 MG VIAL 1000 MG INJ ×2 (12:40→14:36)
--- NOTE | 2023-08-16 13:01 | SUR.OPER ---
Lateral on padded OR bed. Gel axillary roll. Arms secured on padded armboard with pillow supporting top arm. Padded hip positioner braces x4 - anterior and posterior chest and pelvis. Additional gel pad used anterior pelvis. Gel pad under bottom leg from knee to foot and secured with tape over sheet.
[2023-08-16] MEDS: BUPIVACAINE 0.5% (PF) 30 ML, EPINEPHrine 0.15 MG INJ (13:22)
[2023-08-16] MEDS: BUPIVACAINE LIPOSOME 266 MG/20 ML VIAL INJ (13:23)
[2023-08-16] MEDS: ACETAMINOPHEN IV 1,000 MG/100 ML VIAL 400 MG IV (13:35)
--- NOTE | 2023-08-16 15:00 | DI.RAD.S_ITS ---
PROCEDURE: XR HIP W PEL IF DONE RT 2V INDICATIONS: RIGHT TOTAL HIP TECHNIQUE: AP pelvis and lateral view of the hip acquired. COMPARISON: [facility], CR, XR HIP W PEL IF DONE RT 2V, 05/21/2021, 14:30. [facility], CR, XR PELVIS WITH LATERAL HIP RIGHT, 08/12/2023, 10:07. [facility], CR, XR PELVIS 1-2V, 08/16/2023, 13:44. FINDINGS: Bones: Patient is status post right hip arthroplasty, with hardware components in expected positions. The hip joint appears congruent. The visualized bony structures appear intact. Left hip arthritic change. Soft tissues: Overlying postoperative changes are noted. No suspicious soft tissue densities. IMPRESSION: Expected post-operative appearance of a hip arthroplasty. Dictated by: Umu Longoria M.D. on 08/16/2023 at 16:58 Approved by: Umu Longoria M.D. on 08/16/2023 at 16:59
[2023-08-16] MEDS: LACTATED RINGERS 1,000 ML 100 ML IV (17:11)
[2023-08-16] MEDS: ACETAMINOPHEN 325 MG TABLET 650 MG PO (17:12)
[2023-08-16] MEDS: IBUPROFEN 600 MG TABLET PO (18:40)
[2023-08-16] MEDS: OXYCODONE IR 5 MG TABLET PO (20:57)
[2023-08-16] MEDS: methocarbamoL 500 MG TABLET 750 MG PO (20:58)
[2023-08-16] MEDS: GABAPENTIN 300 MG CAPSULE PO (20:58)
[2023-08-16] MEDS: ASPIRIN EC 81 MG TABLET PO (20:58)
[2023-08-16] MEDS: ATORVASTATIN 20 MG TABLET 10 MG PO (20:58)
[2023-08-16] MEDS: DOCUSATE 100 MG CAPSULE PO (20:58)
[2023-08-16] MEDS: CEFAZOLIN VIAL 3 GM in SODIUM CHLORIDE 0.9% 100 ML IV (20:59)
[2023-08-17 00:15] VITALS: BP 116/82; PULSE 103; RESP 18; TEMP 36.6; O2SAT 93
[2023-08-17] MEDS: IBUPROFEN 600 MG TABLET PO (00:44)
[2023-08-17] MEDS: OXYCODONE IR 5 MG TABLET PO ×2 (00:44→11:41)
[2023-08-17 05:31] LABS: Hematocrit 42.3 % (41-53); Hemoglobin 14.4 g/dL (13.5-17.5)
[2023-08-17] MEDS: CEFAZOLIN VIAL 3 GM in SODIUM CHLORIDE 0.9% 100 ML IV (05:44)
[2023-08-17 05:47] VITALS: BP 133/86; PULSE 97; RESP 18; TEMP 36.6; O2SAT 92
--- NOTE | 2023-08-17 07:31 | PM.PNPO.1 ---
Subjective Subjective Date Patient Seen: 08/17/23 Time Patient Seen: 07:15 Interval history: Patient states he has decrease sensation along his right foot. He did not have numbness in this foot prior to surgery. Hip pain is controlled with oral medications. He has not been up and ambulating yet since he was admitted. Exam Vital Signs (past 8 hours): - 08/17/23 00:15 08/17/23 05:47 Temperature 97.8 F 97.8 F Pulse Rate 103 H 97 H Respiratory Rate 18 18 Blood Pressure 116/82 133/86 Pulse Oximetry 93 92 Oxygen Flow Rate 0 0 Oxygen Delivery Method Room Air Oxygen Flow Rate 0 Narrative Exam Narrative: Patient found lying comfortably in bed. Dressing is intact with no signs of drainage. Right leg: Able to flex and extend at the knee. Ankle dorsal flexion strength 1/5. Plantar flexion strength 3/5. EHL flexion 3/5, EHL extension 1/5. Hyposensation along the L5 dermatome from the ankle to the toes. Left Leg: Sensation through out the L1 to L5 dermatomes are intact. Able to flex and extend at the knee. DP, PF, EHL 5/5 strength Objective Labs 08/17/23 05:00 Labs: Laboratory Results - last 24 hr 08/17/23 05:00 Hgb 14.4 Hct 42.3 PFSH Medical History (Updated 08/10/23 @ 09:18 by Yolanda Perkins RN) History of COVID-19 (~02/2023) HTN (hypertension) Osteoarthritis of right hip Lumbar and sacral osteoarthritis Lip lesion Gout (~1995) Head and neck cancer (~2010) Surgical History (Updated 08/10/23 @ 09:11 by Yolanda Perkins RN) History of surgery (2010) H/O vasectomy Hx of laminectomy (03/2022) Anesthesia History of right knee surgery (~2013) History of left knee surgery (~1975) Family History (Updated 10/21/15 @ 00:00 by Conversion Provider) Brother Age: 68 Stomach cancer Brother Heart disease Father Age: 87 Lung cancer Stroke Mother Heart disease Social History household members: spouse Smoking Status: Former smoker alcohol intake: never Assessment & Plan Post-op Postoperative Procedures: Procedures Operation Date: 08/16/23 10:45 Actual Procedure Side Surgeon p Total Hip Arthroplasty Right Tavia Cottrell MD Postoperative day: 1 Postoperative plan narrative: Notified Dr. Cottrell of findings. She recommend monitoring patient and have him work with PT throughout the day. Reevaluate tomorrow for discharge. Continue with multi-modal pain control. Time Spent With Patient Time with patient: less than 15 minutes Quality VTE Deep Vein Thrombosis/Pulmonary Embolism Present on Admission: No
[2023-08-17 08:00] VITALS: BP 115/76; PULSE 87; RESP 18; TEMP 36.2; O2SAT 91
[2023-08-17] MEDS: ACETAMINOPHEN 325 MG TABLET 650 MG PO ×2 (08:53→15:06)
[2023-08-17] MEDS: LEVOTHYROXINE 75 MCG TABLET PO (08:54)
[2023-08-17] MEDS: AMLODIPINE 5 MG TABLET 10 MG PO (08:54)
[2023-08-17] MEDS: MELOXICAM 7.5 MG TABLET 15 MG PO (08:54)
[2023-08-17] MEDS: GABAPENTIN 300 MG CAPSULE PO ×2 (08:54→14:53)
[2023-08-17] MEDS: ASPIRIN EC 81 MG TABLET PO (08:54)
[2023-08-17] MEDS: DOCUSATE 100 MG CAPSULE PO (08:54)
[2023-08-17] MEDS: allopurinoL 100 MG TABLET 300 MG PO (08:54)
[2023-08-17 09:09] VITALS: PULSE 81; RESP 14; O2SAT 95
--- NOTE | 2023-08-17 11:25 | PT.IIE ---
Current Diagnoses Idiopathic aseptic necrosis of right femur (08/16/23) Surgery Performed Operation Date: 08/16/23 10:45 Actual Procedures p Total Hip Arthroplasty(Right) - Tavia Cottrell MD Surgical History (Last Updated 08/10/23 @ 09:11 by Yolanda Perkins RN) Anesthesia H/O vasectomy History of left knee surgery (~1975) History of right knee surgery (~2013) History of surgery (2010) Hx of laminectomy (03/2022) Medical History (Last Updated 08/10/23 @ 09:18 by Yolanda Perkins RN) Gout (~1995) Head and neck cancer (~2010) History of COVID-19 (~02/2023) HTN (hypertension) Lip lesion Lumbar and sacral osteoarthritis Osteoarthritis of right hip Physical Therapy Inpatient Evaluation/Re-Eval M1 PT/OT-IP Prior Functional Status Start: 08/17/23 13:18 Freq: NEEDED Status: Active Protocol: Document 08/17/23 11:25 AB (Rec: 08/17/23 13:37 AB [id number]) Medical Review Prior Functional Status Medical History Reviewed Yes Communication able to make needs known Mobility and Gait pt stated that he was independent with all mobilities and ambulation without AD Social History Household Members spouse Living Arrangements House Number of Floors (Floors) Two Floors Number of Stairs To Enter/Railing? 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 M2 PT-IP Current Condition Start: 08/17/23 13:18 Freq: NEEDED Status: Active Protocol: Document 08/17/23 11:25 AB (Rec: 08/17/23 13:37 AB [id number]) Physical Therapy Current Condition Current Condition Evaluation Date 08/17/23 Treatment Diagnosis s/p R MICHELET posterior; difficulty in walking Onset Date 08/16/23 M3 PT-IP Subjective Start: 08/17/23 13:18 Freq: NEEDED Status: Active Protocol: Document 08/17/23 11:25 AB (Rec: 08/17/23 13:37 AB [id number]) Subjective Physical Therapy Visit Type Type Initial Evaluation Visit Start Time 11:25 Visit Stop Time 12:45 Number of MACHINE LEAD BURNER Visits 0 Physical Therapy Visit Comments Patient Comments agreeable to do PT Therapy Pain Assessment Pain When Pain Assessed At Rest Pain Present Pain Present Pain Reported Location Right Hip Intensity 3 Scale Used increases to 7/10 with movement Pain Behaviors Guarding Pain Management Techniques Distraction,Modification of Treatment,Re-positioning, Timing of Activity with Medications M4 PT-IP Mobility and Gait Start: 08/17/23 13:18 Freq: NEEDED Status: Active Protocol: Document 08/17/23 11:25 AB (Rec: 08/17/23 13:37 AB [id number]) PT-Bed Mobility Assessment Supine to Sit Supine to Sit Standby Assistance Sit to Supine Sit to Supine Moderate Assistance,1 Person Assistance PT-Transfer Assessment Sit to and From Stand Sit to and from Stand Contact Guard Assistance, Minimal Assistance,1 Person Assistance,Use of Upper Extremities Equipment Transfer Assistive Device Gait Belt,Front Wheeled Walker Orthotic/Prosthetic Devices or Brace: No Transfers Transfer Destination Bed,Chair Transfer Technique ambulation Transfer Ability Level of Assist Contact Guard Assistance, Minimal Assistance,1 Person Assistance,Use of Upper Extremities Comments Mobility Comments pt was sitting up on the chair and agreeable to do PT. spouse in room with pt. obtained pLOF and home set up from pt and spouse. reviewed precautions and pt initially only recalled 2/3. eudcated pt regarding hip precautions again. reviewd post-op folder contents gain. pt completed sit to stand from chair min A and max cues. pt ambulated in room using FWW ~ 12 ft min A to mod A and max cues. presents with slight knee buckling and cued for quads activation. pt also has slight R foot drop. pt stated that he still has numbness on R foot after sx. pt sat on EOB. completed sit to supine mod A for LE elevation to the bed. educated spouse on how to assist pt. educated pt regarding sit to supine techniques. pt completed supine to sit SBA. able to sit on EOB SBA. completed sit to stand CGA and cues and ambulated to chair using fWW CGA to min A. caregiver training conducted. educated spouse on how to use safety belt and how to assist pt. spouse was able to put safety belt on pt. pt completed sit <>stand x 6 reps initially requiring CGA to min A and max cues. towards the end only requiring CGA and no cues. spouse assisted pt with ambulation in the hallway using FWW ~ 100 ft CGA. stair climbing training : educated pt and spouse regarding car transfers and techniques for up/down steps. pt completed up/down steps holding on to R rail with B hands with PT assisting pt on first set requiring CGA to min A and cues and spouse assisted pt on 2nd set. spouse was able to assist pt safely. assisted pt back to his room. pt ambulated from w/c to chair using FWW CGA with spouse assisting. positioned pt on the chair. call light and table set up for lunch. pt and spouse without further concerns. Gait Assessment Gait Gait Assistance Required: Contact Guard Assist,Minimum Assistance,Moderate Assistance Distance (Feet) 100 Able to Maintain Weight Bearing Status Yes During Gait Assistive Devices Assistive Device Gait Belt,Front Wheeled Walker Orthotic/Prosthetic Devices or Brace: No Gait Deviations General Gait Pattern Antalgic,Decreased Stride Length,Decreased Feet Clearance Factors Limiting Gait Function Factors Limiting Gait Function Decreased Activity Tolerance, Decreased Sensation,Limited Range of Motion,Pain,Poor Balance,Poor Safety Awareness Stair Climbing Assessment Evaluation Level of Assist On Stairs Contact Guard Assistance, Minimal Assistance Devices Stair Climbing Assistive Devices Right Railing Technique/Endurance Stair Climbing Direction Ascend and Descend Stair Climbing Technique Step to Step Number of Steps Climbed 3 Query Text: Stair Climbing Set # Repetitions (reps) 2 PT-Balance Assessment Sitting Balance and Reactions Static Sitting Balance Ability Good Dynamic Sitting Balance Ability Good Standing Balance and Reactions Static Standing Balance Ability Fair Dynamic Standing Balance Ability Fair Device Used FWW M5 PT-IP Objective Assessments Start: 08/17/23 13:18 Freq: NEEDED Status: Active Protocol: Document 08/17/23 11:25 AB (Rec: 08/17/23 13:37 AB [id number]) Orientation Orientation/Cognition Level of Alertness Alert Orientation Name,Place,Situation Safety Awareness Decreased Safety Awareness Memory Description Short Term Impaired Gross Range of Motion Lower Extremity ROM Assessment Within Functional Limits Strength Lower Extremity Strength Assessment Right Impaired Hip 3-/5 Knee 3+/5 Ankle 3-/5 Sensation Assessment Sensation Gross Sensation Right LE Impaired Sensation Description Numbness Comments Sensation Comments c/o R foot numbness M6 PT-IP Treatment Start: 08/17/23 13:18 Freq: NEEDED Status: Active Protocol: Document 08/17/23 11:25 AB (Rec: 08/17/23 13:37 [id number]) Physical Therapy Treatment Education Education Provided Precautions,Weight Bearing Status,Post-Op Packet,Safety M7 PT-IP Assessment and Plan Start: 08/17/23 13:18 Freq: NEEDED Status: Active Protocol: Document 08/17/23 11:25 AB (Rec: 08/17/23 13:37 [id number]) PT Summary Assessment and Plan Potential Rehabilitation Potential Fair Status of Condition at Evaluation Evolving Summary Impairments Pain,ROM,Strength,Balance, Coordination,Sensation,Tone, Cognition,Bed Mobility, Transfers,Gait,Activity Tolerance Assessment Summary pt is a 63 y/o M s/p R MICHELET posterior approach POD 1. pt with R hip posterior precautions and is WBAT on RLE . pt requiring CGA to min A with mobility using FWW. caregiver training completed and spouse was able to assist pt safely. pt has outpt PT set up. pt may go home when medically stable. Goals Bed Mobility Goal Independent Transfer Goal Independent,Front Wheeled Walker Gait Goal Independent,Front Wheel Walker Gait Distance 250 Other Goals up/down 15 steps R rail SBA Days to Meet Goals 5 Frequency of Treatment Frequency Of Treatment Twice a Day Treatment Plan Physical Therapy Treatment Plan Bed Mobility Training,Transfer Training,Gait Training, Therapeutic Exercise,Balance Retraining,Post Op Education, Discharge Planning,Hot or Cold Pack,Neuromuscular Re-ed, Coordination Retraining,Manual Therapy Precautions Posterior Hip Precautions No Hip Flexion > 90 degrees,No Hip Internal Rotation,No Hip Adduction Weight Bearing Status Weight Bearing Status Weight Bear as Tolerated Allowed Weight Bearing Amount (enter % RLE WBAT or #) (%) Recommendations To Nursing Amount of Assist Needed 1 Person Assist Discharge Recommendations PT Discharge Recommendations Home with Assistance, Outpatient PT Transportation Needs at Discharge Private Vehicle
[2023-08-17] MEDS: methocarbamoL 500 MG TABLET 750 MG PO (11:41)
--- NOTE | 2023-08-17 14:02 | PM.DS.1 ---
History of Present Illness History of Present Illness Date Patient Seen: 08/17/23 Time Patient Seen: 13:55 Chief complaint: Right Total Hip Arthroplasty 08/15 Narrative: Procedure: Right total hip arthroplasty posterior approach Same procedure as scheduled: Yes Indications: The patient has had progressively worsening right hip pain with radiographic changes consistent with arthritis. Non-operative management has failed and the patient has requested total hip replacement. The risks, benefits and alternatives to surgery were discussed with the patient prior to proceeding. Risks discussed included, but were not limited to, failure to relieve pain, leg length discrepancy, dislocation, stiffness, infection, nerve damage, deep venous thrombosis, pulmonary embolism, stroke, coma, heart attack, permanent paralysis and , as well as the potential need for eventual revision of the prosthetic. Surgeon: Tavia Cottrell Bow Maker Custom: James Ojeda Anesthesia Type: General and Spinal Operative Notes Findings: Severe right hip OA some component of AVN Closure Type: primary Specimen(s): none sent Prosthetic devices, grafts, tissues, transplants, or devices: Cottrell and nephew R3 size 60, neutral poly liner,one 6.5 mm screw, polar stem standard offset size 8 with collar, 40 mm Oxinium head +0 neck Estimated Blood Loss (mL): 250 Blood products transfused: none Discharge Providers Provider Date of admission: 08/16/2023 Discharge Date: 08/17/23 Primary care physician: Romie Garay MD Consults: 08/16/23 06:00 Consult to Anesthesiology Routine Comment: Consulting Provider: Anesthesiologist Reason for consultation: Regional block for post operative pain control 08/16/23 15:38 Consult to Discharge Planning Routine Comment: Consult to Occupational Therapy Evaluate & Treat Comment: Physician Instructions: Evaluate and treat Consult to Physical Therapy Evaluate & Treat Comment: Physician Instructions: post op MICHELET protocol Discharge provider: Gilbert Fuchs PA-C Summary Hospital Course Discharge Diagnosis: Status post right total hip arthroplasty posterior approach Hospital Course: Multi-modal pain control and PT Status at Discharge Cognitive/behavioral status at discharge: oriented Functional status at discharge: uses cane/walker Overall status at discharge: patient is progressing back to baseline Time Spent with Patient Time spent: Less than 30 minutes Exam Vital Signs (past 8 hours): - 08/17/23 08:00 08/17/23 09:09 Temperature 97.2 F L Pulse Rate 87 81 Respiratory Rate 18 14 Blood Pressure 115/76 Pulse Oximetry 91 95 Oxygen Delivery Method Room Air Oxygen Flow Rate 0 Oxygen Delivery Method Room Air Oxygen Flow Rate 0 Narrative Exam Narrative: Patient found lying comfortably in bed. Dressing is intact with no signs of drainage. Right leg: Able to flex and extend at the knee. Ankle dorsal flexion strength 3/5. Plantar flexion strength 5/5. EHL flexion 5/5, EHL extension 3/5. Hyposensation along the L5 dermatome from the ankle to the toes. Left Leg: Sensation through out the L1 to L5 dermatomes are intact. Able to flex and extend at the knee. DP, PF, EHL 5/5 strength. Symptoms improving after working with PT and ambulating with assistance. Objective Labs 08/17/23 05:00 Labs: Laboratory Results - last 24 hr 08/17/23 05:00 Hgb 14.4 Hct 42.3 PFSH Medical History (Updated 08/10/23 @ 09:18 by Yolanda Perkins RN) History of COVID-19 (~02/2023) HTN (hypertension) Osteoarthritis of right hip Lumbar and sacral osteoarthritis Lip lesion Gout (~1995) Head and neck cancer (~2010) Surgical History (Updated 08/10/23 @ 09:11 by Yolanda Perkins RN) History of surgery (2010) H/O vasectomy Hx of laminectomy (03/2022) Anesthesia History of right knee surgery (~2013) History of left knee surgery (~1975) Family History (Updated 10/21/15 @ 00:00 by Conversion Provider) Brother Age: 68 Stomach cancer Brother Heart disease Father Age: 87 Lung cancer Stroke Mother Heart disease Social History household members: spouse Smoking Status: Former smoker alcohol intake: never Discharge Assessment & Plan Assessment and Plan Assessment: Status post right total hip arthroplasty posterior approach Plan of Treatment: Discharge home with family. Patient already is obtained postoperative medications instructed in their use. Aspirin 81 mg twice a day for DVT prophylaxis for 6 weeks. Start outpatient physical therapy in 5-10 days. Follow up in clinic in 2 weeks for wound check. Discharge Plan Discharge Plan Patient Disposition: Home Discharge orders & Medications Discharge Orders: Discharge (Order); Ordered 08/17/23 Ordered By: Gilbert Fcuhs Prescriptions: New aspirin 81 mg Tablet,Delayed Release (Dr/Ec) 81 mg PO BID Qty: 90 0RF Continued amlodipine 10 mg tablet 10 mg PO DAILY Qty: 90 2RF meloxicam 15 mg tablet 15 mg PO DAILY gabapentin 300 mg capsule 300 mg PO 3XD Patient Comments: Pt has been taking bid fluoride (sodium) 1.1 % gel PO fluoride (sodium) [SF 5000 Plus] 1.1 % cream PO allopurinol 300 mg tablet 300 mg PO QDAY Qty: 90 0RF levothyroxine 75 mcg tablet 75 mcg PO DAILY Qty: 90 2RF simvastatin 20 mg tablet 20 mg PO HS Qty: 90 3RF methocarbamol 750 mg tablet 750 mg PO TID PRN (Reason: Pain (Scale Score 1-3)) Qty: 90 3RF acetaminophen [Acetaminophen Extra Strength] 500 mg Tablet 1,000 mg PO BID Follow up/Referrals: Romie Garay MD [Primary Care Provider] - Diet/Activity/Treatments Diet: Diet as Tolerated Activity: Weightbearing as tolerated. Cold/Heat Therapy: Ice over wound site as needed for pain relief. Skin/Wound/Dressing Care Report to your healthcare provider any signs of infection, such as:: chills, fever, night sweats, unusual drainage and unusual redness Dressing: Keep dressing clean and dry. If it becomes dirty or disrupted, please replace. Visit Report/Discharge Packet Instructions: DI for Hip Replacement Stand Alone Forms: Patient Portal/API, Surgery Discharge Discharge Data Primary Care Provider: Romie Garay Attending Provider: Tavia Cottrell VTE Deep Vein Thrombosis/Pulmonary Embolism Present on Admission: No
--- NOTE | 2023-08-17 14:28 | OT.IP.EVAL ---
Current Diagnoses Idiopathic aseptic necrosis of right femur (08/16/23) Surgery Performed Operation Date: 08/16/23 10:45 Actual Procedures p Total Hip Arthroplasty(Right) - Tavia Cottrell MD Past Medical History (Last Updated 08/10/23 @ 09:18 by Yolanda Perkins, ARNULFO) Gout (~1995) Head and neck cancer (~2010) History of COVID-19 (~02/2023) HTN (hypertension) Lip lesion Lumbar and sacral osteoarthritis Osteoarthritis of right hip Surgical History (Last Updated 08/10/23 @ 09:11 by Yolanda Perkins RN) Anesthesia H/O vasectomy History of left knee surgery (~1975) History of right knee surgery (~2013) History of surgery (2010) Hx of laminectomy (03/2022) Occupational Therapy Inpatient Evaluation/Re-Eval M1 PT/OT-IP Prior Functional Status Start: 08/17/23 13:18 Freq: NEEDED Status: Active Protocol: Document 08/17/23 11:25 AB (Rec: 08/17/23 13:37 AB [id number]) Medical Review Prior Functional Status Medical History Reviewed Yes Communication able to make needs known Mobility and Gait pt stated that he was independent with all mobilities and ambulation without AD Social History Household Members spouse Living Arrangements House Number of Floors (Floors) Two Floors Number of Stairs To Enter/Railing? 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 Social History Household Members spouse Living Arrangements House Number of Floors (Floors) Two Floors Number of Stairs To Enter/Railing? 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 M2 OT-IP Current Condition Start: 08/17/23 14:12 Freq: Status: Active Protocol: Document 08/17/23 11:15 NAYLA (Rec: 08/17/23 14:28 NAYLA [id number]) Occupational Therapy Current Condition Current Condition Evaluation Date 08/17/23 Treatment Diagnosis s/p R MICHELET Diagnosis Onset Date 08/16/23 Post Operative Precautions Posterior Hip Precautions No Hip Flexion > 90 degrees,No Hip Internal Rotation,No Hip Adduction Other Precautions no hip flexion >70 M3 OT- IP Subjective and Pain Start: 08/17/23 14:12 Freq: Status: Active Protocol: Document 08/17/23 11:15 NAYLA (Rec: 08/17/23 14:28 NAYLA [id number]) OT- Subjective Occupational Therapy Visit Type Type Initial Evaluation Visit Start Time 10:15 Visit Stop Time 11:15 Notes Pt was in the shower with nsg when OT arrived. Pt agreed to have OT finish pt's shower and continue with evaluation. Pt able to state all hip precautions. Occupational Therapy Visit Comments Patient Comments Pt and spouse wish to d/c home . OT Pain Assessment Pain When Pain Assessed At Rest Pain Present Pain Present Pain Reported Location Right Hip Intensity 3 Scale Used Numeric (0 - 10) Description Aching,Dull M4 OT- IP ADL's Start: 08/17/23 14:12 Freq: Status: Active Protocol: Document 08/17/23 11:15 NAYLA (Rec: 08/17/23 14:28 NAYLA [id number]) OT TLL-Hyqj-Dahynac General Evaluation Self-Feeding Ability Independent OT ADL-Grooming General Evaluation Grooming Ability Standby Assistance Areas Needing Assistance Retrieving/Set-up of Grooming Items OT ADL-Oral Care General Eval Oral Care Ability Standby Assistance Areas of Assistance Retrieving/Set-Up of Items Comments Oral Care Comments OT educated pt on how maintain hip precautions when leaning to spit after brushing teeth. OT ADL-Dressing General Eval Upper Body Dressing Ability Independent Lower Body Dressing Ability Minimal Assistance Areas Needing Assistance Retrieving/Set-up of Clothing, Underpants/Brief,Pants/Shorts, Socks,Shoes Assistive Devices Dressing Assistive Devices Long Handled Shoe Horn,Hair Assistant ,Sock Aid Comments OT Dressing Comments OT educated pt on use of AE for LB dressing. OTs php magento developer is not long enough for pt to perform underpants/pants without some assistance at this time. OT recommends a longer php magento developer on d/c. Pt demonstrates good use of AE following education for LB dressing. OT ADL-Toileting General Evaluation Toileting Ability Standby Assistance Devices Toileting Assistive Devices Grab Bars,Raised Toilet Seat Comments OT Toileting Comments OT educated pt on toileting hygiene when standing to prevent breaking hip precautions. OT ADL-Bathing Bathing Type Bathing Type Shower General Evaluation Bathing Ability Minimal Assistance Areas Needing Assistance Retrieving/Setting Up Items, Wash/Dry Back,Wash/Dry Lower Extremities Comments OT Bathing Comments Pt required OT to finish LB bathing due to hip precautions and to dry his back. OT discussed AE options upon d/c. M5 OT- IP IADL's Start: 08/17/23 14:12 Freq: Status: Active Protocol: Document 08/17/23 11:15 NAYLA (Rec: 08/17/23 14:28 VIVEKCAELINOR [id number]) OT-Instrumental Activities of Daily Living Home Safety Awareness Awareness of Need for Assistance at Home Good Awareness Ability to Problem Solve Emergency Able to Problem Solve Situations Medication Management Medication Management No Deficits Identified Money Management Money Management No Deficits Identified Meal Preparation Meal Preparation Caregiver Provides Supervision Whitewasher Whitewasher Caregiver Provides Assist Driving Driving Caregiver Provides Assist M6 OT- IP Functional Cognition Start: 08/17/23 14:12 Freq: Status: Active Protocol: Document 08/17/23 11:15 NAYLA (Rec: 08/17/23 14:28 VIVEKCAELINOR [id number]) Cognitive Factors Limiting Selfcare Function Cognitive Ability Level of Alertness Alert Patient Orientation Name,Age,Birthday,Month,Date, Year,Day of Week,Place, Situation Attention Span Ability Capable of Focused Attention, Capable of Sustained Attention Ability to Follow Commands Able to Follow Multi-Step Commands Memory Description No Deficits Noted Safety Awareness No Deficits Noted Problem Solving Ability No deficits Noted Executive Function Ability No Deficits Noted Abstract Thinking Ability No Deficits Noted OT- Vision and Hearing OT- Hearing Assessment OT- Hearing Assessment WFL OT- Vision Assessment Visual Acuity WFL M7 OT- IP Mobility and Balance Start: 08/17/23 14:12 Freq: Status: Active Protocol: Document 08/17/23 11:15 NAYLA (Rec: 08/17/23 14:28 [facility] [id number]) OT-Transfer Assessment Sit to and From Stand Sit to and from Stand Standby Assistance,1 Person Assistance Transfers Transfer Ability Standby Assistance,1 Person Assistance Technique Transfer Destination Bedside Commode,Car,Shower Stall Transfer Technique Stand Step Pivot Devices Transfer Assistive Devices Gait Belt,Front Wheeled Walker Comments Mobility Comments pt demonstrates good saftey awarness and follows vcs provided to adhere to hip precautions. OT- Gait Assessment Gait Gait Assistance Required: Standby Assistance Distance (Feet) 20 Assistive Devices Assistive Device Gait Belt,Front Wheeled Walker OT- Balance Assessment Sitting Balance and Reactions Static Sitting Balance Ability Normal Dynamic Sitting Balance Ability Normal Standing Balance and Reactions Static Standing Balance Ability Good Dynamic Standing Balance Ability Good M8 OT- IP Objective Assessments Start: 08/17/23 14:12 Freq: Status: Active Protocol: Document 08/17/23 11:15 NAYLA (Rec: 08/17/23 14:28 [facility] [id number]) OT Gross Range of Motion Upper Extremity Range of Motion Assessment Within Functional Limits OT Strength Upper Extremity Strength Assessment Within Functional Limits Hand Percussion Instrument Tuner Strength Hand Dominance Right Comments Strength Comments strength grossly 4 to 5/5 Jackson OT- Coordination Assessment Upper Extremity Finger to Nose Test Within Functional Limits Finger Tapping Test Within Functional Limits OT-Muscle Tone Assessment Muscle Tone WNL Yes M9 OT- IP Assessment and Plan Start: 08/17/23 14:12 Freq: Status: Active Protocol: Document 08/17/23 11:15 NAYLA (Rec: 08/17/23 14:28 [facility] [id number]) OT Summary Assessment and Plan Potential Rehabilitation Potential Excellent Analytic Complexity at Evaluation Low Summary OT Impairments Pain,Functional Mobility, Dressing,Toileting,Bathing, Toilet Transfers,Shower Transfers,Activity Tolerance Progress Towards Goals Progressing Toward Goals,Safe For Discharge Assessment Summary Pt is 63 yo M s/p R MICHELET posterior approach. Pt recalls all hip precautions. Pt and caregiver educated for AE with LB ADLs and pt demonstrates good use following education. OT also provided education for toileting, sink side ADLs, and functional t/fs following hip precautions. Pt demonstrates or verbalizes understanding. Pt has out-pt PT prepared for when he is medically stable for d/c. Skilled OT services are appropriate to review AE I and BADL within hip precautions for 1-2 treatments . Goals Grooming Goal Independent Dressing Goal Independent,Long Handled Shoe Horn,Hair Assistant,Sock Aid Toileting Goal Independent Bathing Goal Independent,Grab Bars,Hand Held Shower Sprayer,Long Handled Sponge or [place] Toilet Transfer Goal Independent,Raised Toilet Seat ,Grab Bars Shower Transfer Goal Independent,Walk-in Shower, Shower Chair Days to Meet Goals 2 Frequency of Treatment Frequency Of Treatment Once a Day Treatment Plan OT Treatment Plan ADL Training,Functional Mobility Discharge Recommendations OT Discharge Recommendations Home,Outpatient PT Home Equipment Needs extended php magento developer, long handled shoe horn, sock aid, shower bench/chair Transportation Needs at Discharge Private Vehicle
--- NOTE | 2023-08-17 15:39 | PC.NURSE ---
Patient is A&OX4, VSS, afebrile on RA. He reports pain level to R hip is tolerable at rest 3/10. Aquacel c/d/i. He is able to ambulate with FWW to BR and participate with PT today. He reports numbness to top of R foot and PT noted a foot drop. He is evaluated by the ortho PA after walking in rousseau and walking on stairs with PT, and cleared for discharge home this afternoon with his . He is escorted by RN via w/ch to private vehicle with his with all of his belongings this afternoon at approximately 1525.
--- NOTE | 2023-08-17 16:17 | CM.DANOTE ---
Brief DCP Assessment Note Pt is a 63yo M here following planned right total hip surg with Dr. Cottrell 08.17.23 PCP Matias Garay Payer [employer] and self pay DISH TECHNICIAN reviewed EMR. Per chart review, pt lives in [place] with spouse Gabby. Per PT/OT, rec home with assistance. 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 Per RN, pt OOB, walking in room, pain well managed. No obvious CM needs from chart review/RN report. Pt left prior to being seen by this DISH TECHNICIAN. CM team will continue to follow as needed. LUCÍA Mariscal Discharge Planning/Care Management CM Discharge Assessment Start: 08/17/23 16:15 Freq: Status: Active Protocol: Document 08/17/23 16:15 (Rec: 08/17/23 16:17 [id number]) Discharge Planning Assessment Assigned Control Clerk Auditing LUCÍA Cavazos DPOA/Assigned Designee Name Sheron, spouse Contact Information [phone] Advance Directives? Yes Advance Directives on File No History Provided By Patient Prior Living Arrangements House Household Members spouse Independent with ADL's Yes Is patient alert and oriented? 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 # of Control Clerk Auditing Review Status In Process Next Review Type Continued Stay Review Pre-Anesthesia Assessment Start: 08/10/23 08:48 Freq: Status: Complete Protocol: Document 08/10/23 08:48 CAB (Rec: 08/10/23 09:27 CAB [id number]) Pre-Anesthesia Assessment Patient Information Reviewed Via Phone Assessment Assessment Completed With Patient Diagnostic Results BMP/CMP,CBC,EKG Comment Labs/EKG @ [facility] 06/14/23 Primary Care Provider Romie Garay Seen Specialist in Last 12 Months Yes Specialist Seen Orthopedist Primary Language Khmer Preferred Language Khmer Horticulturalist Required No Height 193.04 cm Weight 136.078 kg Body Mass Index (BMI) 36.5 Hearing Ability Normal Visual Assist Glasses Dentition Type Teeth, Natural Present Barriers to Learning None Hx Anesthesia Reactions No Hx Family Anesthesia Reaction No Hx Malignant Hyperthermia No Hx Blood Transfusions No Anesthesia Review Requested No Antique Repairer No alcohol intake former Alcohol Intake Frequency Other: Holding for surgery Smoking Status Former smoker how long ago did patient quit smoking 2014 Substance Use Type marijuana Comment Pt advised not to smoke marijuana 24 hours prior Pain Present Pain Reported Musculoskeletal Symptoms Abnormal Gait,Back Pain, Difficulty Walking,Joint Pain History of Falling (Recent or History of No ) Patient is completely paralyzed or No completely immobile Mental Status Oriented to own ability Is patient on oxygen? No Does patient have KERN/SOB No Hx Sleep Apnea No CPAP/BIPAP use not prescribed Currently Taking a Beta Remi No Can You Climb a Flight of Stairs Without Yes SOB Hx Chest Pain No Hx SOB No Hx Syncope or Dizziness No Anti-Coagulant Therapy No Has a Numerical Analysis Group Manager No Cardiac Testing No Hx Pacemaker/ICD No Pacemaker Rep Required? No Cardiac Clearance Received Not Applicable Diet Type At Home Regular Dysphagia No Gastrointestinal Symptoms None Chronic UTI No Urinary Catheter Present No Hx Urinary Self Catheterization No Diabetes No HgbA1C 5.5 Date 06/14/23 Hx Drug Resistant Organism No Presence of External or Internal Medical No Devices Received a COVID vaccine? Yes Received all doses? Yes Marital Status Lives With spouse Current Living Arrangements House Number of Floors (Floors) Two Floors Support System Spouse Does the Patient Have Assistance After Yes Surgery Patient Discharge Plan Description Return Home Comment Pt advised possible overnight length of stay per surgeon Feels Safe in Current Environment Yes Been Physically Hurt or Threatened By a No Person in Current Environment Do you have thoughts of harming yourself None or others? Are you currently considering suicide? No Do you have a plan to hurt yourself or No Plan others? Do You Have Any Spiritual Beliefs That No May Affect Your HC Choices? Do You Have Any Cultural Practices That No May Affect Your HC Choices? Who Can We Speak to About Patient's Care only Identifying Code for Release of Patient [place] Information Health Care Proxy/Next of Kin Sheron () Health Care Proxy Emergency Contact Name Sheron () Emergency Contact Advance Directives? Yes Advance Directives on File No Power of Dater Assembler Yes Power of Dater Assembler Name Sheron () Power of Dater Assembler PAC Instructions Durable medical equipment, Medications to take/avoid, Nasal antibiotic,No ETOH/ petroleum product on skin DOS, NPO,Post-op transportation,Pre -surgical wash,Sensory aids, Sturdy shoes/comfortable clothes,Do not bring valuables and remove jewelry
== END 2023-08-17 15:25 | disposition home or self-care (01) ==
LOC: OR 08:41 → AC 08:42
PROVIDERS: Family Provider Family Medicine; PCP Family Medicine; Referring Provider Orthopaedic Surgery; Visit Provider Orthopaedic Surgery
PROC: 0SR90JZ Replacement of Right Hip Joint with Synthetic Substitute, Open Approach (ICD-10-PCS; CPT 27130; principal; 2023-08-16 10:45)
DX: M87.051 Idiopathic aseptic necrosis of right femur (principal); M16.11 Unilateral primary osteoarthritis, right hip
CPT/HCPCS: 27130; 36415; 72170; 73502; 85014; 85018; 97162; 97165; 97530; 97535; C1776; C9290; J0136; J0171; J0690; J1100; J2250; J2405; J2704; J3010

== ENCOUNTER → 2024-04-23 07:20 | Outpatient (CLI) | payer OTHER, SELFPAY ==
[2023-08-16 09:06] VITALS: BMI 36.5
[2024-04-23 07:45] LABS: Add Manual Diff / Slide Review NO; Basophils Absolute Auto 0 /uL (0-100); Basophils Percent Auto 0.4 % (0-2); Eosinophils Absolute Auto 100 /uL (0-450); Eosinophils Percent Auto 2.6 % (2-4); Hematocrit 45.8 % (41-53); Hemoglobin 15.8 g/dL (13.5-17.5); Lymphocytes Absolute Auto 1400 /uL (1100-4500); Lymphocytes Percent Auto 32.3 % (25-40); Mean Corpuscular HGB Conc 34.5 % (30-36); Mean Corpuscular Volume 95.6 fL (80-100); Monocytes Absolute Auto 400 /uL (0-900); Monocytes Percent Auto 8.8 % (3-14); Neutrophils Absolute Auto 2400 /uL (1500-7000); Neutrophils Percent Auto 55.9 % (50-75); Platelet Count 220 X10^3/uL (150-400); Red Blood Cell Count 4.79 X10^6/uL (4.5-5.9); Red Cell Distribution Width 13.1 % (11.6-14.8); White Blood Cell Count 4.3 X10^3/uL (4.5-11.0)
[2024-04-23 07:50] LABS: Hemoglobin A1C% w Est Avg Glu 5.4 % (4.0-6.0)
[2024-04-23 08:13] LABS: Alanine Aminotransferase 52 IU/L (<50); Albumin 4.5 g/dL (3.5-5.0); Albumin Globulin Ratio 1.9 (1.0-2.8); Alkaline Phosphatase 89 U/L (38-126); Aspartate Aminotransferase 42 IU/L (17-59); Bilirubin Total 0.9 mg/dL (0.2-1.3); Blood Urea Nitrogen 16 mg/dL (9-20); Calcium 9.7 mg/dL (8.4-10.2); Carbon Dioxide 23 mmol/L (22-32); Chloride 108 mmol/L (98-107); Cholesterol 158 mg/dL (140-199); Estimated Glomerular Filt Rate > 60 mL/min (>60); Globulin 2.4 g/dL (1.7-4.1); Glucose 112 mg/dL (80-110); HDL Cholesterol 67 mg/dL (40-60); HEMOLYSIS < 15 (0-50); LDL Cholesterol Calculated 59 mg/dL (<100); Potassium 4.6 mmol/L (3.4-5.1); Sodium 138 mmol/L (137-145); Total Protein 6.9 g/dL (6.3-8.2); Triglycerides 158 mg/dL (35-150)
[2024-04-23 08:38] LABS: TSH w/ Reflex to FT4 3.77 uIU/mL (0.47-4.68)
[2024-04-23 08:41] LABS: Prostate Specific Antigen Scrn 0.255 ng/mL (0.1-4.0)
[2024-04-24 04:36] LABS: Apolipoprotein B 64 mg/dL (<90)
== END ==
PROVIDERS: Family Provider Family Medicine; PCP Family Medicine; Referring Provider Family Medicine; Visit Provider Family Medicine
DX: Z13.1 Encounter for screening for diabetes mellitus (principal); Z12.5 Encounter for screening for malignant neoplasm of prostate; E03.9 Hypothyroidism, unspecified; E78.2 Mixed hyperlipidemia; I10 Essential (primary) hypertension
CPT/HCPCS: 36415; 80053; 80061; 82172; 83036; 84443; 85025; G0103

== ENCOUNTER → 2025-04-12 08:20 | Outpatient (CLI) | payer OTHER, SELFPAY ==
[2023-08-16 09:06] VITALS: BMI 36.5
[2025-04-12 09:37] LABS: Add Manual Diff / Slide Review NO; Hematocrit 44.1 % (41-53); Hemoglobin 15.1 g/dL (13.5-17.5); Lymphocytes Absolute Auto 1100 /uL (1100-4500); Mean Corpuscular HGB Conc 34.3 % (30-36); Mean Corpuscular Hemoglobin 32.4 PG (26-34); Mean Corpuscular Volume 94.4 fL (80-100); Platelet Count 208 X10^3/uL (150-400)
[2025-04-12 09:39] LABS: Hemoglobin A1C% w Est Avg Glu 5.5 % (4.0-6.0)
[2025-04-12 10:00] LABS: Alanine Aminotransferase 30 IU/L (<50); Albumin 4.5 g/dL (3.5-5.0); Albumin Globulin Ratio 1.9 (1.0-2.8); Alkaline Phosphatase 80 U/L (38-126); Blood Urea Nitrogen 13 mg/dL (9-20); Calcium 9.5 mg/dL (8.4-10.2); Carbon Dioxide 23 mmol/L (22-32); Chloride 107 mmol/L (98-107); Cholesterol 126 mg/dL (140-199); Estimated Glomerular Filt Rate > 60 mL/min (>60); Globulin 2.4 g/dL (1.7-4.1); Glucose 113 mg/dL (70-99); HDL Cholesterol 59 mg/dL (40-60); HEMOLYSIS < 15 (0-50); Potassium 4.5 mmol/L (3.4-5.1); Sodium 138 mmol/L (137-145); Total Protein 6.9 g/dL (6.3-8.2); Triglycerides 107 mg/dL (35-150)
[2025-04-12 10:24] LABS: TSH w/ Reflex to FT4 2.48 uIU/mL (0.47-4.68)
== END ==
PROVIDERS: Family Provider Family Medicine; PCP Family Medicine; Referring Provider Family Medicine; Visit Provider Family Medicine
DX: E78.2 Mixed hyperlipidemia (principal); E03.9 Hypothyroidism, unspecified; I10 Essential (primary) hypertension; Z13.1 Encounter for screening for diabetes mellitus
CPT/HCPCS: 36415; 80053; 80061; 82172; 83036; 84443; 85025

== ENCOUNTER → 2025-04-23 09:08 | Outpatient (CLI) | payer OTHER, SELFPAY ==
[2023-08-16 09:06] VITALS: BMI 36.5
[2025-04-23 14:33] LABS: Microalbumi Creatinin Ratio Ur 8.0 ug/mg CR (<30)
== END ==
PROVIDERS: Family Provider Family Medicine; PCP Family Medicine; Referring Provider Family Medicine; Visit Provider Family Medicine
DX: Z12.5 Encounter for screening for malignant neoplasm of prostate (principal); E78.2 Mixed hyperlipidemia; E03.9 Hypothyroidism, unspecified; I10 Essential (primary) hypertension
CPT/HCPCS: 36415; 82043; 82570; G0103